=== PATIENT | male | born 1975 | race Caucasian/White ===

== ENCOUNTER 2018-07-02 15:27 | Emergency (ER) | payer OTHER, SELFPAY ==
[2018-07-02 15:27] VITALS: BP 139/101; PULSE 68; RESP 16; TEMP 36.9; O2SAT 97; BMI 25.1
--- NOTE | 2018-07-02 15:39 | CT_ITS ---
STUDY: CT BRAIN WITHOUT CONTRAST REASON FOR EXAM: Male, 43 years old. Dizziness, chronic, hypertension, pressure on the top of the head. RADIATION DOSAGE (If Supplied By Facility): CTDIvol = ( 44.99 ) mGy, DLP = ( 765.18 ) mGycm TECHNIQUE: Transaxial CT imaging of the brain was performed without administration of intravenous contrast material. Individualized dose optimization techniques were used for this CT. COMPARISON: None. FINDINGS: Moderate left, mild right maxillary sinus mucoperiosteal thickening. Near-complete opacification of the ethmoid sinuses. Complete opacification of the right frontal sinus. Mild mucoperiosteal thickening of the left sphenoid sinus. Pansinus disease. Molar roots are protruding into the base of the maxillary sinuses bilaterally and may be a contributing factor in the patient's chronic sinus disease. Mastoid air cells and middle ear cavities clear. Symmetric and grossly normal features of the vestibular and acoustic process of the temporal bones. Craniofacial osseous structures intact. Extra cranial soft tissues including orbital contents appear normal. The brain is normal in attenuation characteristics and morphology. CT/Brain/Head without Contrast IMPRESSION: Pansinus disease. No acute intracranial process. Electronically Signed: Rd Mon MD at 16:46 EST Tel , Service support ,
--- NOTE | 2018-07-02 15:39 | EKG12_ITS ---
Test Reason : HIGH BP, DIZZY Blood Pressure : / mmHG Vent. Rate : 063 BPM Atrial Rate : 063 BPM P-R Int : 148 ms QRS Dur : 086 ms QT Int : 374 ms P-R-T Axes : 035 -14 008 degrees QTc Int : 382 ms Normal sinus rhythm Normal ECG Confirmed by STELLA MALONE, KARTHIK ([id number]), editor producer TANK PICKARD ([id number]) on 07/07/2018 5:06:20 PM Referred By: VAN Confirmed By:KARTHIK DOUGLAS MD
--- NOTE | 2018-07-02 15:47 | ED.VISSUMM ---
- ER Visit Summary Date of Service: 07/02/18 Chief Complaint: [Dizziness and high blood pressure] History of Present Illness: The patient is a 43 M [presents to the emergency department with complaint of feeling dizzy for about a year and a half. Patient states that he moved up to the area from [place] about a year and a half ago and at that time had been on blood pressure medicine for about 2-1/2 years. Patient states that he seen 2 physicians since being here in [facility] and none of them would put him on blood pressure medicine because he was told he did not need. Patient complains of frequent episodes of feeling dizzy and lightheaded when he wakes up in the morning and feeling off balance. Patient complains of pressure in his head frequently. He denies any chest pain or shortness of breath. Patient states that he was not going to come in but since his family member was feeling ill today and came to the ER he thought he had a be seen to make sure he was not having a stroke or heart attack. Patient denies any chest pain or shortness of breath. He denies exertional dyspnea.] Physical Examination: [HEENT-PERRLA, EOMI. Cranial nerves II through XII grossly intact. TMs clear. Mucous membranes moist. No adenopathy. Cardiovascular-regular rate and rhythm without murmur or ectopy Lungs-clear to auscultation, chest wall stable without crepitus or subcu emphysema Abdomen-normoactive bowel sounds, soft, nontender, no rebound or rigidity, no peritoneal signs. Neuro ahik-[id number]-[id number] and heel brenenr testing within normal limits, negative Romberg, negative pronator drift, fundi benign Extremities-intact ?4, normal range of motion, normal pulses, atraumatic] Test Results: [Orthostatic vital signs were negative. EKG obtained on arrival showed a sinus rhythm with a ventricular rate of 63 bpm. CBC with differential shows a white count of 6.0, hemoglobin 14, hematocrit 42, platelets 257. Chemistries were normal. Troponin was less than 0.015. TSH was normal at 3.36. CT scan of the brain showed pansinus disease.] Emergency Department Course and Treatment: [Patient case was discussed with Dr. Iker Ascencio who is on-call for ENT who asked that I start patient on antibiotics and have patient follow-up with his office. At this point his latest blood pressure is 109/78 and I certainly do not feel starting antihypertensives is appropriate. Patient was advised to keep a journal of his blood pressures over the next week.] Treatment Plan: [Patient will be started on amoxicillin and will be referred to primary care physician as well as Dr. Iker Ascencio] Disposition: [Discharged home in stable condition] Impression: [Pansinusitis Dizziness Hypertension-to be established] This note was generated with [employer] dictation software. It may contain incorrect words, spelling, and punctuation that were not noted in review of the chart prior to signing ED Disposition - Plan for ED Patient: Referrals: NOT,DEFINED [NON-STAFF] -
[2018-07-02 16:01] VITALS: BP 123/93; BP 124/82; BP 125/97; BP 132/84; PULSE 62; PULSE 63; PULSE 68; PULSE 69; RESP 22; O2SAT 97
[2018-07-02 16:08] LABS: Absolute Lymphocyte Count 1.87 X10^3/ul (0.83-4.51); Absolute Neutrophil Count 3.1 X10^3/uL (2.0-7.7); Basophil# 0.05 X10^3/uL; Basophil% 0.8 % (0-1); Eosinophil# 0.37 X10^3/uL; Eosinophils% 6.2 % (0-5); Hematocrit 42.4 % (40-54); Hemoglobin 14.3 g/dl (13.0-16.5); Lymphocyte # 1.87 X10^3/ul (4.0); Lymphocyte % 31.4 % (19-41); Mean Corp Hgb Conc 33.7 g/gl (32-36); Mean Corpuscular Hgb 31.2 pg (27.0-32.0); Mean Corpuscular Volume 92.6 fL (80-94); Mean Platelet Vol. 9.6 fl (6.2-12.0); Monocyte# 0.56 X10^3/uL; Monocyte% 9.4 % (0-10); Neutrophil # 3.09 X10^3/uL (2.7-7.7); Platelet Count 257 K/mm3 (150-450); RBC Distribution Width CV 12.4 % (11.6-14.6); RBC Distribution Width SD 41.1 fl (35.1-43.9); Red Blood Count 4.58 M/mm3 (4.6-6.2)
[2018-07-02 16:16] LABS: POSITIVE COUNT NO; POSITIVE DIFFERENTIAL NO; POSITIVE MORPHOLOGY NO
[2018-07-02 16:17] LABS: Anion Gap 6 (5-15); BUN 17 mg/dL (7-18); BUN/Creat Ratio 17.3 RATIO (10-20); Calcium,Total 8.5 mg/dL (8.5-10.1); Chloride 105 mmol/L (98-107); Creatinine, Serum 0.98 mg/dL (0.70-1.30); EST Glomerular Filtration Rate 89 mL/min (>60); Est Glom Filt Rate - Afr Amer 108 mL/min (>60); Estimated Creatinine Clearance 88.61 ml/min; Glucose 82 mg/dL (74-106); Potassium 3.9 mmol/L (3.5-5.1); Sodium Level 137 mmol/L (136-145); Thyroid Stim Hormone (TSH) 3.36 uIU/mL (0.358-3.74)
[2018-07-02 17:26] VITALS: BP 127/93; O2SAT 98
--- NOTE | 2018-07-02 17:28 | ED.DEP ---
ED Disposition - Plan for ED Patient: Instructions: ED Hypertension Poss, ED Sinusitis Abx Tx, ED Dizziness [facility] Prescriptions: Amoxicillin 500 mg PO TID #60 tab Referrals: NOT,DEFINED [NON-STAFF] - Iker Victor MD [STAFF PHYSICIAN] - 5-7 Days Iker Ascencio MD [STAFF PHYSICIAN] - 5-7 Days
== END 2018-07-02 17:35 | disposition home or self-care (01) ==
LOC: ED 16:06
PROVIDERS: Emergency Provider Emergency Medicine
DX: J32.4 Chronic pansinusitis (principal); I10 Essential (primary) hypertension; R42 Dizziness and giddiness; F17.220 Nicotine dependence, chewing tobacco, uncomplicated
CPT/HCPCS: 70450; 80048; 84443; 84484; 85025; 93005; 99284

== ENCOUNTER → 2023-10-31 | Outpatient (CLI) | payer MEDICAID, SELFPAY ==
--- NOTE | 2023-10-31 07:50 | CT_ITS ---
STUDY: CT MAXILLOFACIAL SINUSES REASON FOR EXAM: Male, 48 years old. CHRONIC SINUSITIS RADIATION DOSAGE (If Supplied By Facility): CTDIvol = ( 28.14 ) mGy, DLP = ( 675.84 ) mGycm TECHNIQUE: The patient was scanned in a multi detector CT scanner. High resolution axial imaging was performed without the administration of intravenous contrast material. Sagittal and coronal images were reconstructed. Individualized dose optimization techniques were used for this CT. COMPARISON: None. FINDINGS: FRONTAL SINUSES: Partial opacification of the frontal sinuses. ETHMOIDAL SINUSES: There is opacification of the ethmoid sinuses with thinning and erosive changes of the bony septations. MAXILLARY SINUSES: Partial opacification of the left maxillary sinus with nodular thickening of the right maxillary sinus. There is obliteration of the ostiomeatal cochlea bilaterally due to mucosal hypertrophy. SPHENOIDAL SINUSES: Mucosal thickening of the sphenoid sinus. Normal bilateral middle turbinates. Normal bilateral inferior turbinates. Normal midline nasal septum. There is patency of the bilateral nasal airways. There is evidence of prior right frontal parietal craniotomy. Metallic clips are seen in the region of the right vertebral artery. The visualized bilateral orbital contents are normal. CT/Sinus/Facial Bone IMPRESSION: Pansinusitis. Electronically Signed: Hussein Billings MD at 10:07 EDT ,
== END | disposition home or self-care (01) ==
PROVIDERS: PCP Internal Medicine; Referring Provider Otolaryngology; Visit Provider Otolaryngology
DX: J32.8 Other chronic sinusitis (principal)
CPT/HCPCS: 70486

== ENCOUNTER 2024-11-07 11:11 | Emergency (ER) | payer MEDICARE, MEDICAID, SELFPAY ==
[2024-11-07 11:13] VITALS: BP 118/90; PULSE 73; RESP 16; TEMP 36.5; O2SAT 99; BMI 28.1
[2024-11-07 11:31] VITALS: BP 118/102; O2SAT 99
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
--- NOTE | 2024-11-07 11:34 | EKG12_ITS ---
Test Reason : HTN Blood Pressure : */* mmHG Vent. Rate : 58 BPM Atrial Rate : 58 BPM P-R Int : 150 ms QRS Dur : 90 ms QT Int : 386 ms P-R-T Axes : 24 -3 -7 degrees QTcB Int : 378 ms Sinus bradycardia Inferior infarct , age undetermined Abnormal ECG Confirmed by KARTHIK DOUGLAS MD ([id number]), web content editor KURT ORLANDO ([id number]) on 11/10/2024 6:39:59 AM Referred By: Confirmed By: KARTHIK DOUGLAS MD
[2024-11-07 11:35] VITALS: BP 124/87; PULSE 41; O2SAT 100
[2024-11-07 11:36] VITALS: PULSE 63
--- OUTSIDE RECORDS SUMMARY | 2024-11-07 11:50 | XMS RPT_ITS | CCD ---
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 PT Progress Noteon 3 PT Progress Note No report was sent Normal [facility] Therapy Communicationon - Therapy Communication Message VU OLSON canceled today . Signatures Electronically signed by : Lisa Mott PTA; Dec 18 2022 1:57PM EST (Author) Normal [facility] PT Progress Noteon 3 PT Progress Note Therapy Diagnosis Assessed Hemiplegia and hemiparesis following cerebral infarction affecting left non-dominant side (438.22) (I69.354) Plan Goals: Goals set and discussed today. 1. Survey score improvement from 25% to 10% (QDI) 3-4wks 2. Strength increase to allow for improved ADL stairs (from gr4 to gr4+ L hip IR/ER; from gr4+ to gr5 L DF) 3-4wks 3. Strength increase to allow for improved ADL object handling, carrying (from gr4 to gr5 L shldr abd/ER; from gr4+ to gr5 L elb flex/ext) 3-4wks 4. ROM increase to allow for improved ADL reaching, dressing uppers (from 135 to 150 active shldr elevation) 3-4wks Planned interventions include: aquatic therapy, dry needling, education/instructio n, electrical stimulation, gait training, home program, manual therapy, neuromuscular re-education, self care/home management, therapeutic exercises and IASTM/cupping. Frequency and duration: 2 time(s) a week, for 5 weeks, for 9 visits . aquatics per script; OT has been requested. Potential to achieve rehab goals is fair: chronic syndrome Plan to continue with L UE and L LE strengthening and gait training with emphasis on trunk rotation and reciprocal UE motion to improved gait pattern and safety with community ambulation. JW. Assessment Patient identified by name AND . 133/98 BP at start of session. Patient able to advance reps with good tolerance. Difficulty moving UEs in reciprocal pattern, cues required with several restarts afters UEs sync up. Patient did well with addition of UE paddle push/pull and barball flex/ext. Adult Risk Screening There are no spiritual/cultural practices/values/nee ds that are important to know Initial Fall Risk Screening: VU has not fallen in the last 6 months. VU does not have a fear of falling. He does not need assistance with sitting, standing or walking. Does not need assistance walking in his home. He does not need assistance in an unfamiliar setting. The patient is not using an assistive device. Please identify location of pain: L lateral upper thigh, L bicep. Pain Quality: aching. Living Will. Living Will: No living will on file. Patient Declined. Healthcare POA: No healthcare proxy on file. Patient Declined. Declaration of Mental Health Treatment: No mental health treatment on file. Patient Declined. Insurance Insurance reviewed Visit number: Approved number of visits: 10 Authorization date range: no end date [facility] 10v Evaluating therapist David Doran PT. I69.354 Subjective Patient reports:. Pre-treatment pain: 2/10 Upper L LE/Upper L UE Post-treatment pain: 1/10 Upper L LE/Upper L UE Patient states that his blood pressure has been running high and is being monitoring for the Dr. Home program performing as directed: No. Precautions: Fall Risk: none Pertinent medical HX includes: last seizure last (not on seizure medication). Treatment Time in clinic started at 3:15 pm Time in clinic ended at 4:00 pm Total time in clinic is 45 minutes. Total timed code time is 43 minutes. Aquatic Therapy (51632): timed minutes 43, units 3 . FWD gait in 3 ft x 6 laps with BUS VAN DRIVER, working on heel off and increased knee flexion on L LE. FWD ambulation with UE swings in 3 ft x 3 laps, cues for sequence Side stepping x laps TrA isometric in 3ft. 5 x10 Alt Marches x15 w/UE swings hip flexion x15 ea LE hip abd x15 ea LE hip extension x15 ea LE B heel raises x15 L heel raises x15 Step Tap x15 P Step UPs x15 P L shoulder abduction with elbow bent at 45* x15 P L shoulder abduction with elbow extended x15 P L tricep extension x15 P L shoudler flexion x15 P UE Paddle -push pull x10 N Barbell UE flex/ext x10 N . Provided today:. 11/23/22 Patient instructed to lay flat and stretch L bicep, keep TrA engaged with gait and standing activities and ambulate with increased hip and knee flexion on L. 'Scores and Scales' Signatures Electronically signed by : Lisa Mott PTA; Dec 13 2022 4:47PM EST (Author) Electronically signed by : Eric Doran PT; Dec 14 2022 7:00AM EST Normal [facility] Therapy Communicationon 11-11 Therapy Communication Message VU OLSON rescheduled today . Appt cancelled secondary to thunderstorms. Signatures Electronically signed by : Ale Irving PTA; Dec 07 2022 2:07PM EST (Author) Normal [facility] Therapy Communicationon 11-11 Therapy Communication Message VU OLSON canceled today . Patient cancelled secondary to illness. Jw. Signatures Electronically signed by : Lisa Mott PTA; Dec 04 2022 2:33PM EST (Author) Normal [facility] PT Progress Noteon 3 PT Progress Note No report was sent [facility] Therapy Communicationon 11-11 Therapy Communication Message VU OLSON canceled today . Patient arrived for his appointment. He was observed pacing in the hallway in his bathing suit. Then went to the supervisor front and asked them to call his . I brought him back to the pool area and he asked if I could call his . He did state that he felt a little dizzy. The PSR let patient know that she did reach his via phone call and his was on her way. After taking his BP (157/105) I then took him out to a amaya and had him lay down. Took his BP again after 5-10 min and it was 156/101, then again 10 min later and it was 156/102. arrived and after another 10-15' his BP decreased to 141/99. She then assisted patient to locker room and from there, was going to take him home. Signatures Electronically signed by : Brenda Dunne PTA; Nov 30 2022 2:57PM EST (Author) Normal [facility] PT Progress Noteon 3 PT Progress Note Therapy Diagnosis Assessed Hemiplegia and hemiparesis following cerebral infarction affecting left non-dominant side (438.22) (I69.354) Plan Goals: Goals set and discussed today. 1. Survey score improvement from 25% to 10% (QDI) 3-4wks 2. Strength increase to allow for improved ADL stairs (from gr4 to gr4+ L hip IR/ER; from gr4+ to gr5 L DF) 3-4wks 3. Strength increase to allow for improved ADL object handling, carrying (from gr4 to gr5 L shldr abd/ER; from gr4+ to gr5 L elb flex/ext) 3-4wks 4. ROM increase to allow for improved ADL reaching, dressing uppers (from 135 to 150 active shldr elevation) 3-4wks Planned interventions include: aquatic therapy, dry needling, education/instructio n, electrical stimulation, gait training, home program, manual therapy, neuromuscular re-education, self care/home management, therapeutic exercises and IASTM/cupping. Frequency and duration: 2 time(s) a week, for 5 weeks, for 9 visits . aquatics per script; OT has been requested. Potential to achieve rehab goals is fair: chronic syndrome Plan to continue with L UE and L LE strengthening and gait training with emphasis on trunk rotation and reciprocal UE motion to normalize gait. JW. Assessment Patient identified by name AND . Patient was able to enter and exit pool without CGA. Worked on UE swing with fwd ambulation, patient required tactile cues to keep sequence. Patient also required tactile cues for alt marching with UE swings, patient tends to lose reciprocal motion and is able to regain sequence after re-setting. Adult Risk Screening There are no spiritual/cultural practices/values/nee ds that are important to know Initial Fall Risk Screening: VU has not fallen in the last 6 months. VU does not have a fear of falling. He does not need assistance with sitting, standing or walking. Does not need assistance walking in his home. He does not need assistance in an unfamiliar setting. The patient is not using an assistive device. Please identify location of pain: L lateral upper thigh, L bicep. Pain Quality: aching. Living Will. Living Will: No living will on file. Patient Declined. Healthcare POA: No healthcare proxy on file. Patient Declined. Declaration of Mental Health Treatment: No mental health treatment on file. Patient Declined. Insurance Insurance reviewed Visit number: Approved number of visits: 10 Authorization date range: no end date [facility] 10 Evaluating therapist David Doran PT. I69.354 Subjective Patient reports:. Patient states he was able to get out and run yesterday, reports only SOB and no falls. Reports that he has a difficult time controlling L UE. Pre-treatment pain: 2/10 Upper L LE/Upper L UE Post-treatment pain: 1/10 Upper L LE/Upper L UE . Home program performing as directed: No. Precautions: Fall Risk: none Pertinent medical HX includes: last seizure last (not on seizure medication). Treatment Time in clinic started at 3:15 pm Time in clinic ended at 4:00 pm Total time in clinic is 45 minutes. Total timed code time is 43 minutes. Aquatic Therapy (47551): timed minutes 47, units 3 . FWD gait in 3 ft x 6 laps with BUS VAN DRIVER, working on heel off and increased knee flexion on L LE. Side stepping x 2 laps TrA isometric in 3ft. 5 x10 Alt Marches x15 w/UE swings N hip flexion x15 ea LE P hip abd x15 ea LE P hip extension x15 ea LE P B heel raises x15 P L heel raises x15 P Step Tap x10 N Step UPs x10 N L shoulder abduction with elbow bent at 45* x10 L shoulder abduction with elbow extended x10 L tricep extension x10 L shoudler flexion x10 . Provided today:. 11/23/22 Patient instructed to lay flat and stretch L bicep, keep TrA engaged with gait and standing activities and ambulate with increased hip and knee flexion on L. 'Scores and Scales' Signatures Electronically signed by : Lisa Mott LIBRARY MONITOR; Nov 27 2022 4:11PM EST (Author) Electronically signed by : Eric Doran PT; Nov 28 2022 9:43AM EST Normal [facility] PT Progress Noteon 3 PT Progress Note Therapy Diagnosis Assessed Hemiplegia and hemiparesis following cerebral infarction affecting left non-dominant side (438.22) (I69.354) Plan Goals: Goals set and discussed today. 1. Survey score improvement from 25% to 10% (QDI) 3-4wks 2. Strength increase to allow for improved ADL stairs (from gr4 to gr4+ L hip IR/ER; from gr4+ to gr5 L DF) 3-4wks 3. Strength increase to allow for improved ADL object handling, carrying (from gr4 to gr5 L shldr abd/ER; from gr4+ to gr5 L elb flex/ext) 3-4wks 4. ROM increase to allow for improved ADL reaching, dressing uppers (from 135 to 150 active shldr elevation) 3-4wks Planned interventions include: aquatic therapy, dry needling, education/instructio n, electrical stimulation, gait training, home program, manual therapy, neuromuscular re-education, self care/home management, therapeutic exercises and IASTM/cupping. Frequency and duration: 2 time(s) a week, for 5 weeks, for 9 visits . aquatics per script; OT has been requested. Potential to achieve rehab goals is fair: chronic syndrome Plan to continue with L shoulder ROM AND L LE ROM and strengthening for improved gait pattern and ease of ambulation and functional ADL's. - MA. Assessment Patient identified by name AND . Patient oriented to use of emergency walkie talkie. Treatment consisted of aquatic ex's for core strengthening, L LE ROM AND strengthening, L UE strength AND ROM and gait. Patient has slight L sided neglect. Decreased L hip and knee flexion with gait which was improved at the end of treatment. Patient has week L tricep and tight R bicep. Patient instructed to lay flat and stretch L bicep, keep TrA engaged with gait and standing activities and ambulate with increased hip and knee flexion on L. Pain decreased post treatment. * Required CGA with ex's today and enters and exits pool via stairs. Adult Risk Screening There are no spiritual/cultural practices/values/nee ds that are important to know Initial Fall Risk Screening: VU has not fallen in the last 6 months. VU does not have a fear of falling. He does not need assistance with sitting, standing or walking. Does not need assistance walking in his home. He does not need assistance in an unfamiliar setting. The patient is not using an assistive device. Pain Scale: On a scale of 0 to 10, the patient rates the pain at 2. Please identify location of pain: L lateral upper thigh, L bicep. Pain Quality: aching. Living Will. Living Will: No living will on file. Patient Declined. Healthcare POA: No healthcare proxy on file. Patient Declined. Declaration of Mental Health Treatment: No mental health treatment on file. Patient Declined. Insurance Insurance reviewed Visit number: 2 Approved number of visits: 10 Authorization date range: no end date [facility] 10v Evaluating therapist David Doran PT. I69.354 Subjective Patient reports:. Pretreatment pain: 2/10 in upper part of lateral side of L leg, 2/10 in bicep of L arm Post treatment pain: 1/10 L lateral upper leg and 1/10 L bicep Patient states that he walks going to his R and that he does a step-to pattern with stairs. States that he has not done his HEP ex's that he was given at his eval. Home program performing as directed: No. Precautions: Fall Risk: none Pertinent medical HX includes: last seizure last (not on seizure medication). Treatment Time in clinic started at 2:00 pm Time in clinic ended at 2:50 pm Total time in clinic is 50 minutes. Total timed code time is 47 minutes. Aquatic Therapy (28511): timed minutes 47, units 3 . FWD gait in 3 ft x 6 laps with BUS VAN DRIVER, working on heel off and increased knee flexion on L LE. Side stepping x 2 laps TrA isometric in 3ft. 5 x10 hip flexion x10 ea LE hip abd x10 ea LE hip extension x10 ea LE B heel raises x10 L heel raises x10 L shoulder abduction with elbow bent at 45* x10 L shoulder abduction with elbow extended x10 L tricep extension x10 L shoudler flexion x10 . Provided today:. 11/23/22 Patient instructed to lay flat and stretch L bicep, keep TrA engaged with gait and standing activities and ambulate with increased hip and knee flexion on L. 'Scores and Scales' Signatures Electronically signed by : Brenda Dunne LIBRARY MONITOR; Nov 23 2022 3:42PM EST (Author) Electronically signed by : Eric Doran PT; Nov 23 2022 5:34PM EST Normal [facility] PT Initial Evaluationon 07-0 PT Initial Evaluation Therapy Diagnosis Assessed Hemiplegia and hemiparesis following cerebral infarction affecting left non-dominant side (438.22) (I69.354) Plan of Care Goals: Goals set and discussed today. 1. Survey score improvement from 25% to 10% (QDI) 3-4wks 2. Strength increase to allow for improved ADL stairs (from gr4 to gr4+ L hip IR/ER; from gr4+ to gr5 L DF) 3-4wks 3. Strength increase to allow for improved ADL object handling, carrying (from gr4 to gr5 L shldr abd/ER; from gr4+ to gr5 L elb flex/ext) 3-4wks 4. ROM increase to allow for improved ADL reaching, dressing uppers (from 135 to 150 active shldr elevation) 3-4wks Planned interventions include: aquatic therapy, dry needling, education/instructio n, electrical stimulation, gait training, home program, manual therapy, neuromuscular re-education, self care/home management, therapeutic exercises and IASTM/cupping. Frequency and duration: 2 time(s) a week, for 5 weeks, for 9 visits . aquatics per script; OT has been requested. Potential to achieve rehab goals is fair: chronic syndrome Plan of care was developed with input and agreement by the patient. Assessment The patient has had multiple series of rehab previous to this order. He requested pool therapy as he had it here before and he felt it would help his balance and spasticity-the Dr agreed with this. The original stroke was in Dec. The patient states that the neurologist chose not to prescribe seizure med due to the absence of brain activity consistent with seizures. THE PATIENT'S MAIN COMPLAINT IS LIMITED USE OF HIS ARM/HAND SO OCCUPATIONAL THERAPY WOULD ALSO BE APPROPRIATE. FURTHER DETAILED HAND WORK-UP WILL BE DEFERRED TO OCCUPATIONAL THERAPY WHEN OT ORDERS ARE RECEIVED. The patient scored 0 on the PHQ-9 instrument today. Findings additional to L hand spasticity include L hip and arm weakness and limited L shldr AROM. PT will continue with balance/gait activities, hip PRE and LUE ROM/PRE in the pool. STATED ABOVE DETAILED HAND WORK-UP AND TREATMENT OF SPATIC TENDENCIES WILL COMMENCE WITH AN OT ORDER. Clinical Presentation: Stable and/or uncomplicated characteristics. Level of Complexity: low Problem List: activity limitations, ADLs/IADLs/self care skills, decreased functional level, decreased knowledge of HEP, decreased knowledge of precautions, gait/locomotion, range of motion/joint mobility and strength. Reason For Visit Initial Evaluation . CVA. Referred by: [facility] Adult Risk Screening There are no spiritual/cultural practices/values/nee ds that are important to know Initial Fall Risk Screening: VU has not fallen in the last 6 months. VU does not have a fear of falling. He does not need assistance with sitting, standing or walking. Does not need assistance walking in his home. He does not need assistance in an unfamiliar setting. The patient is not using an assistive device. Living Will. Living Will: No living will on file. Patient Declined. Healthcare POA: No healthcare proxy on file. Patient Declined. Declaration of Mental Health Treatment: No mental health treatment on file. Patient Declined. Insurance Insurance reviewed Visit number: 1 Approved number of visits: 10 Authorization date range: no end date [facility] 10v Evaluating therapist David Doran PT. I69.354 Subjective Current Episode of Functional Impairment and/or Pain Date of onset: 12/22/2020 Mechanism of Injury:. 2nd stroke . Medical Screening: Reviewed medical history form with patient and medical screening assessed. Current Medical Management:. multiple sreies of PT since original incident (x2 series here). Precautions: Fall Risk: none Pertinent medical HX includes: last seizure last (not on seizure medication). Functional Assessment Prior level of function: PAINFUL, DIFFICULT, OR ALTERED ADL (marked with an xx) sleep-- sitting-- sit to standing transfers-- car transfers-- standing-- walking-- carrying--XX stairs--XX dressing lowers--XX driving-- dressing uppers--XX reaching----XX handling objects--XX other-- . Objective Ortho ROM / Joint Mobility (Range of Motion in degrees) Shoulder: (Elise: P! Denotes Pain with Movement, * Indicates [place] Resistant Otherwise Measurements are in Supine) Flexion: R Active 150, L Active 135. Elbow: (Elise = P! Denotes Pain with Movement) B elbow active flex/ext WFL. Gait / Mobility Gait: normal gait at normal speeds; tends to walk with LUE in dependent position. Strength Shoulders: (Elise: P! Denotes Pain with Movement) Shoulder abduction 5/5 on right, 4/5 on left. External rotation at side 5/5 on right, 4/5 on left. External rotation at 5/5 on right, in 30 deg. Abduction, 4/5 on left, in 30 deg. Abduction. Internal rotation at 5/5 on right, in 30 deg. Abduction, 4+/5 on left, in 30 deg. Abduction. Elbows: (Elise: P! Denotes Pain with Movement) Extension: 5/5 on right and 4+/5 on left. Fle (more content not included)... Normal [facility] CBC AND DIFFERENTIALon 11-02 % AUTOMATED IMMATURE GRAN 0.2 % Normal 0.0 - 0.9 [facility] Comment on above: Result Comment: Jesusita ture Granulocyte Count (IG) includes promyelocytes, myelocytes and metamyelocytes but does not include bands. Percent differential counts (%) should be interpreted in the context of the absolute cell counts (cells/L). Performed By: #### C BCDF #### [address] [address] Basophils (Bld) [#/Vol] 0.04 10*3/uL Normal 0.00 - 0.1 0 [facility] Comment on above: Performed By: #### C BCDF #### [address] [address] Basophils/100 WBC (Bld) 0.8 % Normal 0.0 - 2.0 [facility] Comment on above: Performed By: #### C BCDF #### [address] [address] Eosinophils (Bld) [#/Vol] 0.21 10*3/uL Normal 0.00 - 0.70 [facility] Comment on above: Performed By: #### C BCDF #### [address] [address] Eosinophils/100 WBC (Bld) 4.2 % Normal 0.0 - 6.0 [facility] Comment on above: Performed By: #### C BCDF #### [address] [address] Erythrocyte distribution width (RBC) [Ratio] 12.3 % Normal 11.5 - 14.5 [facility] Comment on above: Performed By: #### C BCDF #### [address] [address] Hematocrit (Bld) [Volume fraction] 45.6 % Normal 41.0 - 52.0 [facility] [facility] Comment on above: Performed By: #### C BCDF #### [address] [address] Hemoglobin (Bld) [Mass/Vol] 15.5 g/dL Normal 13.5 - 17.5 [facility] Comment on above: Performed By: #### C BCDF #### [address] [address] Lymphocytes (Bld) [#/Vol] 1.33 10*3/uL Normal 1.20 - 4.80 [facility] Comment on above: Performed By: #### C BCDF #### [address] [address] Lymphocytes/100 WBC (Bld) 26.4 % Normal 13.0 - 44.0 [facility] Comment on above: Performed By: #### C BCDF #### [address] [address] MCHC (RBC) [Mass/Vol] 34.0 g/dL Normal 32.0 - 36.0 [facility] Comment on above: Performed By: #### C BCDF #### [address] [address] MCV (RBC) [Entitic vol] 94 fL Normal 80 - [address] [facility] Comment on above: Performed By: #### C BCDF #### [address] [address] Monocytes (Bld) [#/Vol] 0.37 10*3/uL Normal 0.10 - 1.0 0 [facility] Comment on above: Performed By: #### C BCDF #### [address] [address] Monocytes/100 WBC (Bld) 7.4 % Normal 2.0 - 10.[address] [facility] Comment on above: Performed By: #### C BCDF #### [address] [address] Neutrophils (Bld) [#/Vol] 3.07 10*3/uL Normal 1.20 - 7.70 [facility] Comment on above: Result Comment: Perc ent differential counts (%) should be interpreted in the context of the absolute cell counts (cells/L). Performed By: #### C BCDF #### [address] [address] Neutrophils/100 WBC (Bld) 61.0 % Normal 40.0 - 80.0 [facility] Comment on above: Performed By: #### C BCDF #### [address] [address] Platelets (Bld) [#/Vol] 252 10*3/uL Normal 150 - 450 [facility] Comment on above: Performed By: #### C BCDF #### [address] [address] RBC 4.85 x10E12/L Normal 4.50 - 5.90 [facility] Comment on above: Performed By: #### C BCDF #### [address] [address] WBC (Bld) [#/Vol] 5.0 10*3/uL Normal 4.4 - 11.3 [facility] Comment on above: Performed By: #### C BCDF #### [place] [address] COMPREHENSIVE PANELon 2022 Albumin [Mass/Vol] 4.3 g/dL Normal 3.4 - 5.0 [facility] Comment on above: Performed By: #### C MP #### [address] [address] ALP [Catalytic activity/Vol] 69 U/L Normal 33 - 120 [facility] Comment on above: Performed By: #### C MP #### [address] [address] ALT [Catalytic activity/Vol] 24 U/L Normal 10 - 52 [facility] Comment on above: Result Comment: Nita ents treated with Sulfasalazine may generate falsely decreased results for ALT. Performed By: #### C MP #### [address] [address] Anion gap [Moles/Vol] 10 mmol/L Normal 10 - 20 [facility] Comment on above: Performed By: #### C MP #### [address] [address] AST [Catalytic activity/Vol] 17 U/L Normal 9 - 39 [facility] Comment on above: Performed By: #### C MP #### [address] [address] Bilirubin [Mass/Vol] 0.6 mg/dL Normal 0.0 - 1.2 [facility] Comment on above: Performed By: #### C MP #### [address] [address] Calcium [Mass/Vol] 9.4 mg/dL Normal 8.6 - 10.3 [facility] Comment on above: Performed By: #### C MP #### [address] [address] Chloride [Moles/Vol] 108 mmol/L High 98 - 107 [facility] Comment on above: Performed By: #### C MP #### [address] [address] Creatinine [Mass/Vol] 1.01 mg/dL Normal 0.50 - 1.30 [facility] Comment on above: Performed By: #### C MP #### [address] [address] eGFR MALE >90 Normal >90 [facility] Comment on above: Result Comment: CALC ULATIONS OF ESTIMATED GFR ARE PERFORMED USING THE 2020 CKD-EPI STUDY REFIT EQUATION WITHOUT THE RACE VARIABLE FOR THE IDMS-TRACEABLE CREATININE METHODS. https://jasn.asnjournals.org/content/early/ASN.2020 375474 Performed By: #### C MP #### [address] [address] Glucose [Mass/Vol] 95 mg/dL Normal 74 - 99 [facility] Comment on above: Performed By: #### C MP #### [address] [address] HCO3 (Bld) [Moles/Vol] 29 mmol/L Normal 21 - 32 [facility] Comment on above: Performed By: #### C MP #### [address] [address] Potassium [Moles/Vol] 4.3 mmol/L Normal 3.5 - 5.3 [facility] Comment on above: Performed By: #### C MP #### [address] [address] Protein [Mass/Vol] 6.9 g/dL Normal 6.4 - 8.2 [facility] Comment on above: Performed By: #### C MP #### [address] [address] Sodium [Moles/Vol] 143 mmol/L Normal 136 - 145 [facility] Comment on above: Performed By: #### C MP #### [address] [address] Urea nitrogen [Mass/Vol] 12 mg/dL Normal 6 - 23 [facility] Comment on above: Performed By: #### C MP #### [address] [address] Complete Blood Count + Diffe rentialon 11-02-2022 Basophils/100 WBC (Bld) 0.8 % 0.0 - 2.0 [facility] [place] Work Phone: Erythrocyte distribution width (RBC) [Ratio] 12.3 % See Below [facility] Work Phone: Comment on above: Reference Range: 11. 5 - 14.5 Hematocrit (Bld) [Volume fraction] 45.6 % See Below [facility] Work Phone: Comment on above: Reference Range: 41. 0 - 52.0 Hemoglobin (Bld) [Mass/Vol] 15.5 g/dL See Below [facility] Work Phone: Comment on above: Reference Range: 13. 5 - 17.5 Lymphocytes/100 WBC (Bld) 26.4 % See Below [facility] Work Phone: Comment on above: Reference Range: 13. 0 - 44.0 MCHC (RBC) [Mass/Vol] 34.0 g/dL See Below [facility] Work Phone: Comment on above: Reference Range: 32. 0 - 36.0 MCV (RBC) [Entitic vol] 94 fL 80 - 100 [facility] Work Phone: Monocytes/100 WBC (Bld) 7.4 % 2.0 - 10.0 [facility] Work Phone: Neutrophils/100 WBC (Bld) 61.0 % See Below [facility] Work Phone: Comment on above: Reference Range: 40. 0 - 80.0 Platelets (Bld) [#/Vol] 252 10*3/uL 150 - 450 [facility] Work Phone: RBC (Bld) [#/Vol] 4.85 {x10E12/L} See Below [facility] Work Phone: Comment on above: Reference Range: 4.5 0 - 5.90 WBC (Bld) [#/Vol] 5.0 10*3/uL 4.4 - 11.3 [facility] Work Phone: Comment on above: SOURCE: Complete Blood Count + Differential 0.04 {x10E9/L} See Below [facility] Work Phone: Comment on above: Reference Range: 0.0 0 - 0.10 Complete Blood Count + Differential 0.21 {x10E9/L} See Below [facility] Work Phone: Comment on above: Reference Range: 0.0 0 - 0.70 Complete Blood Count + Differential 0.37 {x10E9/L} See Below [facility] Work Phone: Comment on above: Reference Range: 0.1 0 - 1.00 Complete Blood Count + Differential 1.33 {x10E9/L} See Below [facility] Work Phone: Comment on above: Reference Range: 1.2 0 - 4.80 Complete Blood Count + Differential 3.07 {x10E9/L} See Below [facility] Work Phone: Comment on above: Reference Range: 1.2 0 - 7.70 Percent differential counts (%) should be interpreted in the context of the absolute cell counts (cells/L). Complete Blood Count + Differential 4.2 % 0.0 - 6.[address] Work Phone: Complete Blood Count + Differential 0.2 % 0.0 - 0.9 [facility] Work Phone: Comment on above: Immature Granulocyte Count (IG) includes promyelocytes, myelocytes and metamyelocytes but does not include bands. Percent differential counts (%) should be interpreted in the context of the absolute cell counts (cells/L). LIPID PANEL (CORONARY RISK 2 )on 11-02-2022 Cholesterol [Mass/Vol] 148 mg/dL Normal 0 - 199 [facility] Comment on above: Result Comment: . AGE DESIRABLE BORDERLINE HIGH HIGH 0-19 Y 0 - 169 170 - 199 >/= 200 20-24 Y 0 - 189 190 - 224 >/= 225 >24 Y 0 - 199 200 - 239 >/= 240 All ranges are based on fasting samples. Specific therapeutic targets will vary based on patient-specific cardiac risk. . Pediatric guidelines reference:Pediatrics 2011, 128(S5). Adult guidelines reference: NCEP ATPIII Guidelines, ZECHARIAH 2001, 258:2486-97 . Venipuncture immediately after or during the administration of Metamizole may lead to falsely low results. Testing should be performed immediately prior to Metamizole dosing. Performed By: #### L IPID #### [address] [address] Cholesterol in HDL [Mass/Vol] 40.0 mg/dL Normal [facility] Comment on above: Result Comment: . AGE VERY LOW LOW NORMAL HIGH 0-19 Y < 35 < 40 40-45 ---- 20-24 Y ---- < 40 >45 ---- >24 Y ---- < 40 40-60 >60 . Performed By: #### L IPID #### [address] [address] Cholesterol in LDL [Mass/Vol] 87 mg/dL Normal 0 - 99 [facility] Comment on above: Result Comment: . NEAR BORD AGE DESIRABLE OPTIMAL HIGH HIGH VERY HIGH 0-19 Y 0 - 109 --- 110-129 >/= 130 ---- 20-24 Y 0 - 119 --- 120-159 >/= 160 ---- >24 Y 0 - 99 100-129 130-159 160-189 >/=190 . Performed By: #### L IPID #### [address] [address] Cholesterol in VLDL [Mass/Vol] 21 mg/dL Normal 0 - 40 [facility] Comment on above: Performed By: #### L IPID #### [address] [address] Cholesterol.total/Lise sterol in HDL [Mass ratio] 3.7 {ratio} Normal [facility] Comment on above: Result Comment: REF VALUES DESIRABLE < 3.4 HIGH RISK > 5.0 Performed By: #### L IPID #### [address] [address] Triglyceride [Mass/Vol] 105 mg/dL Normal 0 - [address] [facility] Comment on above: Result Comment: . AGE DESIRABLE BORDERLINE HIGH HIGH VERY HIGH 0 D-90 D 19 - 174 ---- ---- ---- 91 D- 9 Y 0 - 74 75 - 99 >/= 100 ---- 10-19 Y 0 - 89 90 - 129 >/= 130 ---- 20-24 Y 0 - 114 115 - 149 >/= 150 ---- >24 Y 0 - 149 150 - 199 200- 499 >/= 500 . Venipuncture immediately after or during the administration of Metamizole may lead to falsely low results. Testing should be performed immediately prior to Metamizole dosing. Performed By: #### L IPID #### [address] [address] Lab Specimen Source Normal [facility] Comment on above: Performed By: #### L IPID #### [address] [address] Performed By: #### C BCDF #### [id number] [place] [address] Performed By: #### C MP #### [address] [address] Laboratory - Chemistry and C hemistry - challengeon 11-02-2022 Albumin BCP dye [Mass/Vol] 4.3 g/dL 3.4 - 5.0 [facility] Work Phone: ALP [Catalytic activity/Vol] 69 U/L 33 - 120 [facility] Work Phone: ALT With P-5'-P [Catalytic activity/Vol] 24 U/L 10 - 52 [facility] Work Phone: Comment on above: Patients treated wit h Sulfasalazine may generate falsely decreased results for ALT. Anion gap [Moles/Vol] 10 mmol/L 10 - 20 [facility] [employer] [facility] [place] Work Phone: AST With P-5'-P [Catalytic activity/Vol] 17 U/L 9 - 39 [facility] [employer] [facility] [place] Work Phone: Bilirubin [Mass/Vol] 0.6 mg/dL 0.0 - 1.2 [facility] [employer] [facility] [place] Work Phone: Calcium [Mass/Vol] 9.4 mg/dL 8.6 - 10.3 [facility] [employer] [place] Work Phone: Chloride [Moles/Vol] 108 mmol/L above high threshold 98 - 107 [facility] [employer] [place] Work Phone: CO2 [Moles/Vol] 29 mmol/L 21 - 32 [facility] [employer] [facility] [place] Work Phone: Creatinine [Mass/Vol] 1.01 mg/dL See Below [facility] [place] Work Phone: Comment on above: Reference Range: 0.5 0 - 1.30 Glucose [Mass/Vol] 95 mg/dL 74 - 99 [facility] [place] Work Phone: Comment on above: SOURCE: Potassium [Moles/Vol] 4.3 mmol/L 3.5 - 5.3 [facility] [place] Work Phone: Protein [Mass/Vol] 6.9 g/dL 6.4 - 8.2 [facility] [place] Work Phone: Sodium [Moles/Vol] 143 mmol/L 136 - 145 [facility] [place] Work Phone: Urea nitrogen [Mass/Vol] 12 mg/dL 6 - 23 [facility] [place] Work Phone: Lipid Panelon 11-02-2022 Cholesterol [Mass/Vol] 148 mg/dL 0 - 199 [facility] [place] Work Phone: Comment on above: SOURCE: . AGE DESIRA BLE BORDERLINE HIGH HIGH 0-19 Y 0 - 169 170 - 199 >/= 200 20-24 Y 0 - 189 190 - 224 >/= 225 >24 Y 0 - 199 200 - 239 >/= 240 All ranges are based on fasting samples. Specific therapeutic targets will vary based on patient-specific cardiac risk.. Pediatric guidelines reference:Pediatrics 2011, 128(S5). Adult guidelines reference: NCEP ATPIII Guidelines, ZECHARIAH 2001, 258:2486-97. Venipuncture immediately after or during the administration of Metamizole may lead to falsely low results. Testing should be performed immediately prior to Metamizole dosing. Cholesterol in HDL [Mass/Vol] 40.0 mg/dL [facility] [place] Work Phone: Comment on above: . AGE VERY LOW LOW N ORMAL HIGH 0-19 Y < 35 < 40 40-45 ---- 20-24 Y ---- < 40 >45 ---- >24 Y ---- < 40 40-60 >60. Cholesterol in LDL [Mass/Vol] 87 mg/dL 0 - 99 [facility] [place] Work Phone: Comment on above: . NEAR BORD AGE YESSI RABLE OPTIMAL HIGH HIGH VERY HIGH 0-19 Y 0 - 109 --- 110-129 >/= 130 ---- 20-24 Y 0 - 119 --- 120-159 >/= 160 ---- >24 Y 0 - 99 100-129 130-159 160-189 >/=190. Cholesterol.total/Lise sterol in HDL [Mass ratio] 3.7 {ratio} [facility] [employer] Work Phone: Comment on above: REF VALUESDESIRABLE < 3.4HIGH RISK > 5.0 Triglyceride [Mass/Vol] 105 mg/dL 0 - 149 [facility] [employer] Work Phone: Comment on above: . AGE DESIRABLE BORD SYBIL HIGH HIGH VERY HIGH 0 D-90 D 19 - 174 ---- ---- ----91 D- 9 Y 0 - 74 75 - 99 >/= 100 ---- 10-19 Y 0 - 89 90 - 129 >/= 130 ---- 20-24 Y 0 - 114 115 - 149 >/= 150 ---- >24 Y 0 - 149 150 - 199 200- 499 >/= 500. Venipuncture immediately after or during the administration of Metamizole may lead to falsely low results. Testing should be performed immediately prior to Metamizole dosing. Lipid Panel 21 mg/dL 0 - 40 [facility] [employer] Work Phone: No Panel Informationon 11-02 >90 >90 [facility] [place] Work Phone: Comment on above: CALCULATIONS OF MARIELLE MATED GFR ARE PERFORMED USING THE 2020 CKD-EPI STUDY REFIT EQUATION WITHOUT THE RACE VARIABLE FOR THE IDMS-TRACEABLE CREATININE METHODS.https://jasn.asnjournals.org/content/early/ ASN.4242695537 PT Progress Noteon 3 PT Progress Note No report was sent Normal [facility] Therapy Communicationon Therapy Communication Message Pt had no showed original appointment time and when PT called patient he verbalized they were pulling in the parking lot as they had the appointment down for 45' later than it was scheduled. Discussed this with pt and significant other once they were inside the clinic. Had pt fill out outcome surveys and will wait on additional orders before rescheduling, as pt verbalized he had been seen by physician and they were putting in more orders to continue therapy. Spoke with VU OLSON . Signatures Electronically signed by : Shira Ledezma, PT; Jul 11 2022 5:19PM EST (Author) Normal [facility] PT Progress Noteon 3 PT Progress Note No report was sent Normal [facility] Therapy Communicationon 06-14 Therapy Communication Message VU OLSON no showed today . Patient did not show up for scheduled appointment. Called, but no answer. JW. 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 By discharge VU OLSON will achieve the following goals: Pt will demo and report compliance with new HEP in order to augment POC goals and progression toward independence with symptom management for better outcomes once D/C from POC. , by week 2 Activity Limitation: Pt will be able to don/doff all clothes with , by week 6 Balance: Pt will demo improved functional balance with all transfers with Sit<>stand test improved by >/= 2 seconds., by week 6 Gait/Locomotion: Pt will demo improved gait mechanics with least restrictive device, even step length, stance time, proper heel strike and push off, and min-no evidence of instability or antalgic gait for return to PLOF. , by week 6 Range Of Motion/Joint Mobility: Pt will demo improved *AROM/PROM* in L Shoulder to >/= 170 flexion for improved ease with functional activities with reaching, lifting, carrying for progression toward independence with ADL?s AND IADL?s. , by week 6 Strength: Pt will demo improved MMT by >/= 1 point on 0-5 point scale in BUE's for improved strength and stability, and improved ease with lifting, carrying, and proper mechanics with ADL?s AND IADL?s. , by week 6 Transfers: Pt will demo improved ease with ascending/descending stairs with reciprocal pattern and improved eccentric control to decrease fall risk. , by week 6 QuickDASH, Pt will report subjective improvement with score on QuickDASH improved by >/= 5 points for return to PLOF, improved QOL, and improved ease with ADL?s AND IADL?s. , by week 6 Planned interventions include: aquatic therapy, cryotherapy, education/instructio n, gait training, home program, hot pack, kinesiotaping, manual therapy, neuromuscular re-education, self care/home management, therapeutic activities, therapeutic exercises and IASTM/CUPPING. Frequency and duration: 2 time(s) a week, for 6 weeks, for 12 visits . per C9. Potential to achieve rehab goals is good Continue with aquatic exercises and reciprocal motions to allow for improved reciprocal motions with ADLs. JW. Assessment Patient confirmed name and date of . Patient showed improved sequence with alternating UE hits to ball, continued to use dissociated stance. Advanced stretching to side to side, trialed using dumbbell but patient could not hold dumbbell down. Patient does best with tactile cues with reciprocal UE motions with ambulation. Adult Risk Screening There are no spiritual/cultural practices/values/nee ds that are important to know Initial Fall Risk Screening: VU has not fallen in the last 6 months. VU does not have a fear of falling. He does not need assistance with sitting, standing or walking. Does not need assistance walking in his home. He does not need assistance in an unfamiliar setting. The patient is not using an assistive device. Please identify location of pain: Left Upper arm AND L upper leg on lateral aspect by hip. Pain Quality: spasm. Living Will. Living Will: No living will on file. Healthcare POA: No healthcare proxy on file. Declaration of Mental Health Treatment: No mental health treatment on file. Domestic Violence Screen: Does not feel threatened or abused physically, emotionally or sexually. Do you feel UNSAFE? The patient feels safe in the home. Depression/Suicide Screening: During the past 2 weeks, the patient has not felt down, depressed or hopeless. During the past 2 weeks, the patient has not felt little interest or pleasure in doing things. Insurance Insurance reviewed Visit number: 02/21 [facility] Supervising PT: Shira Ledezma PT, DPT, Kamran DN PT Dx: I69.354; S06.2X9D Onset Date: 2020 Subjective Patient reports:. Date of onset: . Patient states that there are no changes in pain or tightness. Reports pain levels of 2/10 in L UE/LE in the upper portion. No changes in tightness since starting Baclophen. Home program performing as directed: Yes. Precautions: Fall Risk: low Treatment Time in clinic started at 12:15 pm Time in clinic ended at 1:00 pm Total time in clinic is 45 minutes. Total timed code time is 43 minutes. Aquatic Therapy (32336): timed minutes 43, units 3 . TrA Contraction 10x5 holds, instruction to contract with movement in aquatic setting UE/LE lift in alternation 3x10 tactile/verbal cues - standing in 3 ft FWD Ambulation in 3' water 3 laps w/UE swing w/ LIBRARY MONITOR assist for arm swing FWD high stepping in 3' water 2 laps, w/LIBRARY MONITOR assist for Alt UE arm swing FWD ambulation with punches to PTAs hands with body rotation 4 laps FWD/LAT collins ambulation 4 laps Side Stepping in 75% unloading 3 laps. with min A at waist standing behind patient and working on weight shifting from one leg to (more content not included)... 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 By discharge VU OLSON will achieve the following goals: Pt will demo and report compliance with new HEP in order to augment POC goals and progression toward independence with symptom management for better outcomes once D/C from POC. , by week 2 Activity Limitation: Pt will be able to don/doff all clothes with , by week 6 Balance: Pt will demo improved functional balance with all transfers with Sit<>stand test improved by >/= 2 seconds., by week 6 Gait/Locomotion: Pt will demo improved gait mechanics with least restrictive device, even step length, stance time, proper heel strike and push off, and min-no evidence of instability or antalgic gait for return to PLOF. , by week 6 Range Of Motion/Joint Mobility: Pt will demo improved *AROM/PROM* in L Shoulder to >/= 170 flexion for improved ease with functional activities with reaching, lifting, carrying for progression toward independence with ADL?s AND IADL?s. , by week 6 Strength: Pt will demo improved MMT by >/= 1 point on 0-5 point scale in BUE's for improved strength and stability, and improved ease with lifting, carrying, and proper mechanics with ADL?s AND IADL?s. , by week 6 Transfers: Pt will demo improved ease with ascending/descending stairs with reciprocal pattern and improved eccentric control to decrease fall risk. , by week 6 QuickDASH, Pt will report subjective improvement with score on QuickDASH improved by >/= 5 points for return to PLOF, improved QOL, and improved ease with ADL?s AND IADL?s. , by week 6 Planned interventions include: aquatic therapy, cryotherapy, education/instructio n, gait training, home program, hot pack, kinesiotaping, manual therapy, neuromuscular re-education, self care/home management, therapeutic activities, therapeutic exercises and IASTM/CUPPING. Frequency and duration: 2 time(s) a week, for 6 weeks, for 12 visits . per C9. Potential to achieve rehab goals is good Continue with aquatic exercises and reciprocal motions to allow for improved reciprocal motions with ADLs. JW. Assessment Patient confirmed name and date of . Performed ball toss with dissociated stance today, patient able to maintain good balance and UE opposition with hitting ball for return. Patient was unable to catch ball. Continues to required min to mod verbal and tactile cues for UE sequencing, especially when adding LE movement. Adult Risk Screening There are no spiritual/cultural practices/values/nee ds that are important to know Initial Fall Risk Screening: VU has not fallen in the last 6 months. VU does not have a fear of falling. He does not need assistance with sitting, standing or walking. Does not need assistance walking in his home. He does not need assistance in an unfamiliar setting. The patient is not using an assistive device. Please identify location of pain: Left Upper arm AND L upper leg on lateral aspect by hip. Pain Quality: spasm. Living Will. Living Will: No living will on file. Healthcare POA: No healthcare proxy on file. Declaration of Mental Health Treatment: No mental health treatment on file. Domestic Violence Screen: Does not feel threatened or abused physically, emotionally or sexually. Do you feel UNSAFE? The patient feels safe in the home. Depression/Suicide Screening: During the past 2 weeks, the patient has not felt down, depressed or hopeless. During the past 2 weeks, the patient has not felt little interest or pleasure in doing things. Insurance Insurance reviewed Visit number: 01/22 [facility] [place] [facility] Supervising PT: Shira Ledezma PT, DPT, Kamran DN PT Dx: I69.354; S06.2X9D Onset Date: 2020 Subjective Patient reports:. Date of onset: . Patient started taking Baclophen yesterday. States that he felt more loose yesterday but doesn't really notice a difference today. Reports that they will have to adjust dosage. Home program performing as directed: Yes. Precautions: Fall Risk: low Treatment Time in clinic started at 12:15 pm Time in clinic ended at 1:00 pm Total time in clinic is 45 minutes. Total timed code time is 43 minutes. Aquatic Therapy (43289): timed minutes 43, units 3 . TrA Contraction 10x5 holds, instruction to contract with movement in aquatic setting UE/LE lift in alternation 3x10 tactile/verbal cues - standing in 3 ft FWD Ambulation in 3' water 3 laps w/UE swing w/ LIBRARY MONITOR assist for arm swing FWD high stepping in 3' water 2 laps, w/LIBRARY MONITOR assist for Alt UE arm swing FWD ambulation with punches to PTAs hands with body rotation 4 laps FWD/LAT collins ambulation 4 laps Side Stepping in 75% unloading 3 laps. with min A at waist standing behind patient and working on weight shifting from one leg to t (more content not included)... 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 By discharge VU WESLEY will achieve the following goals: Pt will demo and report compliance with new HEP in order to augment POC goals and progression toward independence with symptom management for better outcomes once D/C from POC. , by week 2 Activity Limitation: Pt will be able to don/doff all clothes with , by week 6 Balance: Pt will demo improved functional balance with all transfers with Sit<>stand test improved by >/= 2 seconds., by week 6 Gait/Locomotion: Pt will demo improved gait mechanics with least restrictive device, even step length, stance time, proper heel strike and push off, and min-no evidence of instability or antalgic gait for return to PLOF. , by week 6 Range Of Motion/Joint Mobility: Pt will demo improved *AROM/PROM* in L Shoulder to >/= 170 flexion for improved ease with functional activities with reaching, lifting, carrying for progression toward independence with ADL?s AND IADL?s. , by week 6 Strength: Pt will demo improved MMT by >/= 1 point on 0-5 point scale in BUE's for improved strength and stability, and improved ease with lifting, carrying, and proper mechanics with ADL?s AND IADL?s. , by week 6 Transfers: Pt will demo improved ease with ascending/descending stairs with reciprocal pattern and improved eccentric control to decrease fall risk. , by week 6 QuickDASH, Pt will report subjective improvement with score on QuickDASH improved by >/= 5 points for return to PLOF, improved QOL, and improved ease with ADL?s AND IADL?s. , by week 6 Planned interventions include: aquatic therapy, cryotherapy, education/instructio n, gait training, home program, hot pack, kinesiotaping, manual therapy, neuromuscular re-education, self care/home management, therapeutic activities, therapeutic exercises and IASTM/CUPPING. Frequency and duration: 2 time(s) a week, for 6 weeks, for 12 visits . per C9. Potential to achieve rehab goals is good Continue with aquatic exercises and reciprocal motions to allow for improved trunk rotation and UE/LE opposition with ambulation. JW. Assessment Patient confirmed name and date of . Trialed UE paddles in 80% unloading today to see if the warm water would change spasticity, mild improvement noted but patient continues to need considerable focus and concentration to perform L UE movement in large range. Continued to work on reciprocal motion while incorporating trunk rotation. Adult Risk Screening There are no spiritual/cultural practices/values/nee ds that are important to know Initial Fall Risk Screening: VU has not fallen in the last 6 months. VU does not have a fear of falling. He does not need assistance with sitting, standing or walking. Does not need assistance walking in his home. He does not need assistance in an unfamiliar setting. The patient is not using an assistive device. Please identify location of pain: Left Upper arm AND L upper leg on lateral aspect by hip. Pain Quality: spasm. Living Will. Living Will: No living will on file. Healthcare POA: No healthcare proxy on file. Declaration of Mental Health Treatment: No mental health treatment on file. Domestic Violence Screen: Does not feel threatened or abused physically, emotionally or sexually. Do you feel UNSAFE? The patient feels safe in the home. Depression/Suicide Screening: During the past 2 weeks, the patient has not felt down, depressed or hopeless. During the past 2 weeks, the patient has not felt little interest or pleasure in doing things. Insurance Insurance reviewed Visit number: 10/22 [facility] [place] [facility] Supervising PT: Shira Ledezma PT, DPT, Cert DN PT Dx: I69.354; S06.2X9D Onset Date: 2020 Subjective Patient reports:. Date of onset: . Patient reports that he is less sore than he usually is. States that he did his UE/LE stretches this morning and is feeling better. Home program performing as directed: Yes. Precautions: Fall Risk: low Treatment Time in clinic started at 12:15 pm Time in clinic ended at 1:00 pm Total time in clinic is 45 minutes. Total timed code time is 43 minutes. Aquatic Therapy (12275): timed minutes 43, units 3 . TrA Contraction 10x5 holds, instruction to contract with movement in aquatic setting UE/LE lift in alternation 3x10 tactile/verbal cues - standing in 3 ft FWD Ambulation in 3' water 3 laps w/UE swing w/ LIBRARY MONITOR assist for arm swing FWD high stepping in 3' water 2 laps, w/LIBRARY MONITOR assist for Alt UE arm swing FWD ambulation with punches to PTAs hands with body rotation 4 laps FWD/LAT collins ambulation 4 laps Side Stepping in 75% unloading 3 laps. with min A at waist standing behind patient and working on weight shifting from one leg to the othe (more content not included)... 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 By discharge VU OLSON will achieve the following goals: Pt will demo and report compliance with new HEP in order to augment POC goals and progression toward independence with symptom management for better outcomes once D/C from POC. , by week 2 Activity Limitation: Pt will be able to don/doff all clothes with , by week 6 Balance: Pt will demo improved functional balance with all transfers with Sit<>stand test improved by >/= 2 seconds., by week 6 Gait/Locomotion: Pt will demo improved gait mechanics with least restrictive device, even step length, stance time, proper heel strike and push off, and min-no evidence of instability or antalgic gait for return to PLOF. , by week 6 Range Of Motion/Joint Mobility: Pt will demo improved *AROM/PROM* in L Shoulder to >/= 170 flexion for improved ease with functional activities with reaching, lifting, carrying for progression toward independence with ADL?s AND IADL?s. , by week 6 Strength: Pt will demo improved MMT by >/= 1 point on 0-5 point scale in BUE's for improved strength and stability, and improved ease with lifting, carrying, and proper mechanics with ADL?s AND IADL?s. , by week 6 Transfers: Pt will demo improved ease with ascending/descending stairs with reciprocal pattern and improved eccentric control to decrease fall risk. , by week 6 QuickDASH, Pt will report subjective improvement with score on QuickDASH improved by >/= 5 points for return to PLOF, improved QOL, and improved ease with ADL?s AND IADL?s. , by week 6 Planned interventions include: aquatic therapy, cryotherapy, education/instructio n, gait training, home program, hot pack, kinesiotaping, manual therapy, neuromuscular re-education, self care/home management, therapeutic activities, therapeutic exercises and IASTM/CUPPING. Frequency and duration: 2 time(s) a week, for 6 weeks, for 12 visits . per C9. Potential to achieve rehab goals is good Continue with aquatic exercises and reciprocal motions to allow for improved trunk rotation and UE/LE opposition with stair transfers. JW. Assessment Patient confirmed name and date of . Patient shows improved ability to perform reciprocal UE swings with punching into PTAs hands and walking forward. Cues to rotate trunk with punch. Cues for larger ROM with bwd ambulation with L LE. Patient continues to struggle with reciprocal sequencing but does show improvement with focus and mod cuing. Adult Risk Screening There are no spiritual/cultural practices/values/nee ds that are important to know Initial Fall Risk Screening: VU has not fallen in the last 6 months. VU does not have a fear of falling. He does not need assistance with sitting, standing or walking. Does not need assistance walking in his home. He does not need assistance in an unfamiliar setting. The patient is not using an assistive device. Please identify location of pain: Left Upper arm AND L upper leg on lateral aspect by hip. Pain Quality: spasm. Living Will. Living Will: No living will on file. Healthcare POA: No healthcare proxy on file. Declaration of Mental Health Treatment: No mental health treatment on file. Domestic Violence Screen: Does not feel threatened or abused physically, emotionally or sexually. Do you feel UNSAFE? The patient feels safe in the home. Depression/Suicide Screening: During the past 2 weeks, the patient has not felt down, depressed or hopeless. During the past 2 weeks, the patient has not felt little interest or pleasure in doing things. Insurance Insurance reviewed Visit number: 7 10/22 [facility] Supervising PT: Shira Ledezma PT, DPT, Cert DN PT Dx: I69.354; S06.2X9D Onset Date: 2020 Subjective Patient reports:. Date of onset: . Patient reports that his R UE and LEs continue to be a 2/10 pain levels with muscles spasms. Reports that he is working on reciprocal motions at home. Reports that he is not noticing much change. Home program performing as directed: Yes. Precautions: Fall Risk: low Treatment Time in clinic started at 12:15 pm Time in clinic ended at 1:00 pm Total time in clinic is 45 minutes. Total timed code time is 43 minutes. Aquatic Therapy (23617): timed minutes 43, units 3 . TrA Contraction 10x5 holds, instruction to contract with movement in aquatic setting UE/LE lift in alternation 3x10 tactile/verbal cues - standing in 3 ft FWD Ambulation in 3' water 3 laps w/UE swing w/ LIBRARY MONITOR assist for arm swing FWD high stepping in 3' water 2 laps, w/LIBRARY MONITOR assist for Alt UE arm swing FWD ambulation with punches to PTAs hands with body rotation 4 laps FWD/LAT collins ambulation 4 laps Side Stepping in 75% unloading 3 laps. with min A at waist s (more content not included)... 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 By discharge VU WESLEY will achieve the following goals: Pt will demo and report compliance with new HEP in order to augment POC goals and progression toward independence with symptom management for better outcomes once D/C from POC. , by week 2 Activity Limitation: Pt will be able to don/doff all clothes with , by week 6 Balance: Pt will demo improved functional balance with all transfers with Sit<>stand test improved by >/= 2 seconds., by week 6 Gait/Locomotion: Pt will demo improved gait mechanics with least restrictive device, even step length, stance time, proper heel strike and push off, and min-no evidence of instability or antalgic gait for return to PLOF. , by week 6 Range Of Motion/Joint Mobility: Pt will demo improved *AROM/PROM* in L Shoulder to >/= 170 flexion for improved ease with functional activities with reaching, lifting, carrying for progression toward independence with ADL?s AND IADL?s. , by week 6 Strength: Pt will demo improved MMT by >/= 1 point on 0-5 point scale in BUE's for improved strength and stability, and improved ease with lifting, carrying, and proper mechanics with ADL?s AND IADL?s. , by week 6 Transfers: Pt will demo improved ease with ascending/descending stairs with reciprocal pattern and improved eccentric control to decrease fall risk. , by week 6 QuickDASH, Pt will report subjective improvement with score on QuickDASH improved by >/= 5 points for return to PLOF, improved QOL, and improved ease with ADL?s AND IADL?s. , by week 6 Planned interventions include: aquatic therapy, cryotherapy, education/instructio n, gait training, home program, hot pack, kinesiotaping, manual therapy, neuromuscular re-education, self care/home management, therapeutic activities, therapeutic exercises and IASTM/CUPPING. Frequency and duration: 2 time(s) a week, for 6 weeks, for 12 visits . per C9. Potential to achieve rehab goals is good Continue with aquatic exercises and reciprocal motions to allow for improved trunk rotation and UE/LE opposition with ambulation. JW. Assessment Patient confirmed name and date of . Patient shows improved sequencing with reciprocal motions, continues to lose sequence throughout activity with a need to reset to get back in sequence. Patient does better in stationary UE/LE reciprocal motion than with ambulation, mod to max tactile cues for UE swing with ambulation. Adult Risk Screening There are no spiritual/cultural practices/values/nee ds that are important to know Initial Fall Risk Screening: VU has not fallen in the last 6 months. VU does not have a fear of falling. He does not need assistance with sitting, standing or walking. Does not need assistance walking in his home. He does not need assistance in an unfamiliar setting. The patient is not using an assistive device. Please identify location of pain: Left Upper arm AND L upper leg on lateral aspect by hip. Pain Quality: spasm. Living Will. Living Will: No living will on file. Healthcare POA: No healthcare proxy on file. Declaration of Mental Health Treatment: No mental health treatment on file. Domestic Violence Screen: Does not feel threatened or abused physically, emotionally or sexually. Do you feel UNSAFE? The patient feels safe in the home. Depression/Suicide Screening: During the past 2 weeks, the patient has not felt down, depressed or hopeless. During the past 2 weeks, the patient has not felt little interest or pleasure in doing things. Insurance Insurance reviewed Visit number: 10/22 [id number] Supervising PT: Shria Ledezma PT, DPT, Cert DN PT Dx: I69.354; S06.2X9D Onset Date: 2020 Subjective Patient reports:. Patient reports that his pain in L UE and L LE is a 2/10. upper portion of UE and upper portion of LE. No change in pain after session . Home program performing as directed: Yes. Precautions: Fall Risk: low Treatment Time in clinic started at 12:15 pm Time in clinic ended at 1:00 pm Total time in clinic is 45 minutes. Total timed code time is 43 minutes. Aquatic Therapy (64998): timed minutes 43, units 3 . TrA Contraction 10x5 holds, instruction to contract with movement in aquatic setting UE/LE lift in alternation 3x10 tactile/verbal cues - standing in 3 ft FWD Ambulation in 3' water 3 laps w/UE swing w/ LIBRARY MONITOR assist for arm swing FWD high stepping in 3' water 2 laps, w/LIBRARY MONITOR assist for Alt UE arm swing Side Stepping in 75% unloading 3 laps. with min A at waist standing behind patient and working on weight shifting from one leg to the other. Alt Marching x15 w/LIBRARY MONITOR assist for Alt UE arm swing 3 way Hip B/L x10 ea Tandem stance 15 x 3 hold with UE paddles tod (more content not included)... 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 By discharge VU OLSON will achieve the following goals: Pt will demo and report compliance with new HEP in order to augment POC goals and progression toward independence with symptom management for better outcomes once D/C from POC. , by week 2 Activity Limitation: Pt will be able to don/doff all clothes with , by week 6 Balance: Pt will demo improved functional balance with all transfers with Sit<>stand test improved by >/= 2 seconds., by week 6 Gait/Locomotion: Pt will demo improved gait mechanics with least restrictive device, even step length, stance time, proper heel strike and push off, and min-no evidence of instability or antalgic gait for return to PLOF. , by week 6 Range Of Motion/Joint Mobility: Pt will demo improved *AROM/PROM* in L Shoulder to >/= 170 flexion for improved ease with functional activities with reaching, lifting, carrying for progression toward independence with ADL?s AND IADL?s. , by week 6 Strength: Pt will demo improved MMT by >/= 1 point on 0-5 point scale in BUE's for improved strength and stability, and improved ease with lifting, carrying, and proper mechanics with ADL?s AND IADL?s. , by week 6 Transfers: Pt will demo improved ease with ascending/descending stairs with reciprocal pattern and improved eccentric control to decrease fall risk. , by week 6 QuickDASH, Pt will report subjective improvement with score on QuickDASH improved by >/= 5 points for return to PLOF, improved QOL, and improved ease with ADL?s AND IADL?s. , by week 6 Planned interventions include: aquatic therapy, cryotherapy, education/instructio n, gait training, home program, hot pack, kinesiotaping, manual therapy, neuromuscular re-education, self care/home management, therapeutic activities, therapeutic exercises and IASTM/CUPPING. Frequency and duration: 2 time(s) a week, for 6 weeks, for 12 visits . per C9. Potential to achieve rehab goals is good Continue with aquatic exercises to improve functional use of L UE, balance and safety with ADLs. JW. Assessment Patient confirmed name and date of . Patient required mod to max tactile cuing for UE opposition with fwd ambulation. Able to maintain opposition with UE swing while standing stationary for 7 reps before UEs converged into like motion. Performed supine PROM on LE UE today along with lateral trunk stretch. Adult Risk Screening There are no spiritual/cultural practices/values/nee ds that are important to know Initial Fall Risk Screening: VU has not fallen in the last 6 months. VU does not have a fear of falling. He does not need assistance with sitting, standing or walking. Does not need assistance walking in his home. He does not need assistance in an unfamiliar setting. The patient is not using an assistive device. Please identify location of pain: Left Upper arm AND L upper leg on lateral aspect by hip. Pain Quality: spasm. Living Will. Living Will: No living will on file. Healthcare POA: No healthcare proxy on file. Declaration of Mental Health Treatment: No mental health treatment on file. Domestic Violence Screen: Does not feel threatened or abused physically, emotionally or sexually. Do you feel UNSAFE? The patient feels safe in the home. Depression/Suicide Screening: During the past 2 weeks, the patient has not felt down, depressed or hopeless. During the past 2 weeks, the patient has not felt little interest or pleasure in doing things. Insurance Insurance reviewed Visit number: 5 Subjective Patient reports:. Patient reports pain levels of 2/10 in L upper UE and lateral proximal of L LE. Reports that he feels his balance is improving. Home program performing as directed: Yes. Precautions: Fall Risk: low Treatment Time in clinic started at 12:15 pm Time in clinic ended at 1:00 pm Total time in clinic is 45 minutes. Total timed code time is 43 minutes. Aquatic Therapy (72153): timed minutes 43, units 3 . TrA Contraction 10x5 holds, instruction to contract with movement in aquatic setting UE/LE lift in alternation 3x10 tactile/verbal cues - standing in 3 ft FWD/BWD Ambulation in 3' water 3 laps w/UE swing (fwd only today)w/ LIBRARY MONITOR assist for arm swing FWD high stepping in 3' water 2 laps, w/LIBRARY MONITOR assist for Alt UE arm swing Side Stepping in 75% unloading 3 laps. with min A at waist standing behind patient and working on weight shifting from one leg to the other. Alt Marching x10 1 w/LIBRARY MONITOR assist for Alt UE arm swing 3 way Hip B/L x10 ea Tandem stance 15 x 3 hold NBOS static balance EO, EC 3 x 20 Squats A Alt Lunges facing shallow end A UE Paddles Open 1x15 -push/pull, flex/ext, habd/hadd, abd/add Mod to MaxTactile cues Step Taps 1x15 (more content not included)... 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 By discharge VU OLSON will achieve the following goals: Pt will demo and report compliance with new HEP in order to augment POC goals and progression toward independence with symptom management for better outcomes once D/C from POC. , by week 2 Activity Limitation: Pt will be able to don/doff all clothes with , by week 6 Balance: Pt will demo improved functional balance with all transfers with Sit<>stand test improved by >/= 2 seconds., by week 6 Gait/Locomotion: Pt will demo improved gait mechanics with least restrictive device, even step length, stance time, proper heel strike and push off, and min-no evidence of instability or antalgic gait for return to PLOF. , by week 6 Range Of Motion/Joint Mobility: Pt will demo improved *AROM/PROM* in L Shoulder to >/= 170 flexion for improved ease with functional activities with reaching, lifting, carrying for progression toward independence with ADL?s AND IADL?s. , by week 6 Strength: Pt will demo improved MMT by >/= 1 point on 0-5 point scale in BUE's for improved strength and stability, and improved ease with lifting, carrying, and proper mechanics with ADL?s AND IADL?s. , by week 6 Transfers: Pt will demo improved ease with ascending/descending stairs with reciprocal pattern and improved eccentric control to decrease fall risk. , by week 6 QuickDASH, Pt will report subjective improvement with score on QuickDASH improved by >/= 5 points for return to PLOF, improved QOL, and improved ease with ADL?s AND IADL?s. , by week 6 Planned interventions include: aquatic therapy, cryotherapy, education/instructio n, gait training, home program, hot pack, kinesiotaping, manual therapy, neuromuscular re-education, self care/home management, therapeutic activities, therapeutic exercises and IASTM/CUPPING. Frequency and duration: 2 time(s) a week, for 6 weeks, for 12 visits . per C9. Potential to achieve rehab goals is good Continue with aquatic ex's for improved balance, improved ease of gait and improved ease of use of L UE with ADL's. - MA. Assessment Patient identified by name AND . Patient wore a mask during treatment d/t Covid-19 precautions. Treatment consisted of aquatic ex's for unloading and strengthening of core UE and LE reciprocal motions. Focused today's treatment of working on reciprocal motions of UE/LE combo with fwd gait and marching. Also worked on engaging R side of lateral trunk muscles during entire treatment in order not to lean to L side. Patient required max verbal and tactile cues with all ex's today, but the more her repeated the reciprocal pattern the better he was able to perform it. Adult Risk Screening There are no spiritual/cultural practices/values/nee ds that are important to know Initial Fall Risk Screening: VU has not fallen in the last 6 months. VU does not have a fear of falling. He does not need assistance with sitting, standing or walking. Does not need assistance walking in his home. He does not need assistance in an unfamiliar setting. The patient is not using an assistive device. Please identify location of pain: Left Upper arm AND L upper leg on lateral aspect by hip. Pain Quality: spasm. Living Will. Living Will: No living will on file. Healthcare POA: No healthcare proxy on file. Declaration of Mental Health Treatment: No mental health treatment on file. Domestic Violence Screen: Does not feel threatened or abused physically, emotionally or sexually. Do you feel UNSAFE? The patient feels safe in the home. Depression/Suicide Screening: During the past 2 weeks, the patient has not felt down, depressed or hopeless. During the past 2 weeks, the patient has not felt little interest or pleasure in doing things. Insurance Insurance reviewed Visit number: 4 Subjective Patient reports:. Pretreatment pain: 3/10 Left Upper arm AND L upper leg on lateral aspect by hip. Post treatment pain: 2/10 L upper arm AND L upper leg on lateral aspect by hip States he has a lot of spasticity in L leg and L Upper arm. Reports improved independence with donning AND doffing his clothes. Home program performing as directed: Yes. Precautions: Fall Risk: low Treatment Time in clinic started at 1:15 pm Time in clinic ended at 2:03 pm Total time in clinic is 48 minutes. Total timed code time is 45 minutes. Aquatic Therapy (13405): timed minutes 44, units 3 . TrA Contraction 10x5 holds, instruction to contract with movement in aquatic setting UE/LE lift in alternation 3x10 tactile/verbal cues - standing in 3 ft (P) FWD/BWD Ambulation in 3' water 3 laps w/UE swing (fwd only today)w/ LIBRARY MONITOR assist for arm swing FWD high stepping in 3' water 2 laps, w/LIBRARY MONITOR assist for Alt UE a (more content not included)... 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 By discharge VU OLSON will achieve the following goals: Pt will demo and report compliance with new HEP in order to augment POC goals and progression toward independence with symptom management for better outcomes once D/C from POC. , by week 2 Activity Limitation: Pt will be able to don/doff all clothes with , by week 6 Balance: Pt will demo improved functional balance with all transfers with Sit<>stand test improved by >/= 2 seconds., by week 6 Gait/Locomotion: Pt will demo improved gait mechanics with least restrictive device, even step length, stance time, proper heel strike and push off, and min-no evidence of instability or antalgic gait for return to PLOF. , by week 6 Range Of Motion/Joint Mobility: Pt will demo improved *AROM/PROM* in L Shoulder to >/= 170 flexion for improved ease with functional activities with reaching, lifting, carrying for progression toward independence with ADL?s AND IADL?s. , by week 6 Strength: Pt will demo improved MMT by >/= 1 point on 0-5 point scale in BUE's for improved strength and stability, and improved ease with lifting, carrying, and proper mechanics with ADL?s AND IADL?s. , by week 6 Transfers: Pt will demo improved ease with ascending/descending stairs with reciprocal pattern and improved eccentric control to decrease fall risk. , by week 6 QuickDASH, Pt will report subjective improvement with score on QuickDASH improved by >/= 5 points for return to PLOF, improved QOL, and improved ease with ADL?s AND IADL?s. , by week 6 Planned interventions include: aquatic therapy, cryotherapy, education/instructio n, gait training, home program, hot pack, kinesiotaping, manual therapy, neuromuscular re-education, self care/home management, therapeutic activities, therapeutic exercises and IASTM/CUPPING. Frequency and duration: 2 time(s) a week, for 6 weeks, for 12 visits . per C9. Potential to achieve rehab goals is good Continue with gait training, along with balance training and strengthening, to allow for improved safety and function with transfers. JW. Assessment Patient confirmed name and date of . Added UE swing with fwd/bwd ambulation. Patient has difficulty dissociating UEs, mod verbal cues with continued difficulty. Focused on UE/LE lifts in alternation with opposition. Patient has to focus to perform and has difficulty with timing. Tactle and verbal cues to complete. Patient was able to better control LE with LE kicks compared to last week, able to better keep knees from flexion with straight leg kicks. Adult Risk Screening There are no spiritual/cultural practices/values/nee ds that are important to know Initial Fall Risk Screening: VU has not fallen in the last 6 months. VU does not have a fear of falling. He does not need assistance with sitting, standing or walking. Does not need assistance walking in his home. He does not need assistance in an unfamiliar setting. The patient is not using an assistive device. Please identify location of pain: Left upper arm. Pain Quality: spasm. Living Will. Living Will: No living will on file. Healthcare POA: No healthcare proxy on file. Declaration of Mental Health Treatment: No mental health treatment on file. Domestic Violence Screen: Does not feel threatened or abused physically, emotionally or sexually. Do you feel UNSAFE? The patient feels safe in the home. Depression/Suicide Screening: During the past 2 weeks, the patient has not felt down, depressed or hopeless. During the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 not smaller and urinary stream does not start and stop. Musculoskeletal: +limb weakness, but no arthralgias, no joint stiffness, no muscle weakness, no back pain and no difficulty walking. Skin: no rashes, no change in skin color and pigmentation, no skin lesions and no skin lumps. Neurological: no headaches, no dizziness, no seizures, no tingling, no numbness, no signs and symptoms of stroke and no limb weakness. Psychiatric: no confusion, no memory lapses or loss, no depression and no sleep disturbances. Endocrine: no goiter, no thyroid disorder, no diabetes mellitus, no excessive thirst, no dry skin, no cold intolerance, no heat intolerance and no increased urinary frequency. Hematologic/Lymphati c: is not slow to heal, does not bleed easily, does not bruise easily, no thrombophlebitis, no anemia and no history of blood transfusion. All other systems have been reviewed and are negative for complaint. 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, subs (V58.89,854.06) (S06.2X9D) Hemiparesis of left nondominant side as late effect of cerebral infarction (438.22) (I69.354) Past Medical History Problems History of cerebrovascular accident (V12.54) (Z86.73) History of hyperlipidemia (V12.29) (Z86.39) History of hypertension (V12.59) (Z86.79) Surgical History Problems No history of surgery Family History Mother Family history of cerebrovascular accident (CVA) (V17.1) (Z82.3) in early 60s Family history of type 2 diabetes mellitus (V18.0) (Z83.3) Father Family history of malignant neoplasm of prostate (V16.42) (Z80.42) Child Family history of Healthy adult Brother (more content not included)... 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 By discharge VU OLSON will achieve the following goals: Pt will demo and report compliance with HEP in order to augment POC goals and progression toward independence with symptom management for better outcomes once D/C from POC. , by week 2, goal met Activity Limitation: Pt will be able to don/doff all clothes with , by week 4, goal partially met Range Of Motion/Joint Mobility: Pt will demo improved *AROM/PROM* in L Shoulder to >/= 30 ER for improved ease with functional activities with reaching, lifting, carrying for progression toward independence with ADL?s AND IADL?s. , by week 4, goal partially met Strength: Pt will demo improved MMT by >/= 1 point on 0-5 point scale in BUE's for improved strength and stability, and improved ease with lifting, carrying, and proper mechanics with ADL?s AND IADL?s. , by week 4, goal partially met QuickDASH, Pt will report subjective improvement with score on QuickDASH improved by >/= 5 points for return to PLOF, improved QOL, and improved ease with ADL?s AND IADL?s. , by week 4 Planned interventions include: aquatic therapy, cryotherapy, education/instructio n, gait training, home program, hot pack, kinesiotaping, manual therapy, neuromuscular re-education, self care/home management, therapeutic activities, therapeutic exercises and IASTM/CUPPING . Requesting OT evaluation as well as possible transition to aquatic setting. Frequency and duration: 2 time(s) a week, for 4 weeks, for 8 visits. Potential to achieve rehab goals is good Per PT re-eval 02/12/22; PEnding approval of more visits pt would benefit from transition to aquatic therapy as well as evaluation by occupational therapist with focus on Left digits/hand function. Progress with POC, as tolerated. Assessment Patient identified by name and date of . Patient demonstrated difficulty with peg board and dropped objects several times throughout, he demonstrated frustration, but was able to complete. He required min-modA for direction and to maintain form with exercises. Reviewed HEP with patient and importance of proper form and hold times he verbalized good understanding. Adult Risk Screening There are spiritual/cultural practices/values/nee ds that are important to know: Tenriism Initial Fall Risk Screening: VU has fallen in the last 6 months. VU has a fear of falling. He does not need assistance with sitting, standing or walking. Does not need assistance walking in his home. He does not need assistance in an unfamiliar setting. The patient is not using an assistive device. Fall Risk Screening: Patient is identified as a fall risk. Care Plan: Moderate Risk: Low risk interventions plus: do not leave patient on exam table unattended, supervised activity, educate patient/family on falls prevention, review safety initiatives with patient/family, family at bedside as allowed, yellow falls risk band, focus rounding attention, locate patient in area of high visibility, wheelchair, bed, or personal alarm, bedside commode, elevated toilet seat and pharmacy consult for medication concerns. Please identify location of pain: L shoulder and upper L LE. Pain Quality: [place]. Domestic Violence Screen: Does not feel threatened or abused physically, emotionally or sexually. Do you feel UNSAFE? The patient feels safe in the home. Depression/Suicide Screening: During the past 2 weeks, the patient felt down, depressed or hopeless. During the past 2 weeks, the patient has not felt little interest or pleasure in doing things. Insurance Insurance reviewed Visit number: 8 Approved number of visits: 8 Authorization not required after evaluation POC: [id number] Service/[facility] Supervising PT: Shira Ledezma PT, DPT, Kamran DN PT Dx: I69.354; S06.2X9D Onset Date: 2020 Subjective Patient reports:. Patient reported he awoke this AM with increased spasticity in his L UE and stated it felt like sharp needles getting me all over. He stated It feels better I don't have all the needles after treatment. Precautions: seizures. Fall Risk: moderate Shunt; Plates in skull. Treatment Time in clinic started at 07:45 Time in clinic ended at 08:30 Total time in clinic is 45 minutes. Total timed code time is 43 minutes. Therapeutic exercise (94687): timed minutes 43, units 3 . Reviewed HEP with additional handouts and questions 10? NuSTep 7mins level 2 (Plv) Therabar U's and N's 2 x 10 Dot taps on wall w/noodle 3 x 30? Standing PEG board manipulation all 3 colors x 1 T-band Walk outs x10 orange -flex, ER, IR (min-mod A for technique) Mod Plank shld weight shifts 3 x 10 (reviewed for HEP) Sammarinese ball AAROM 2 x 10 (Jamila at times) -flex, latera (more content not included)... Normal [facility] Therapy Communicationon 10-0 Therapy Communication Message VU OLSON no showed today . 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 By discharge VU OLSON will achieve the following goals: Pt will demo and report compliance with HEP in order to augment POC goals and progression toward independence with symptom management for better outcomes once D/C from POC. , by week 2, goal met Activity Limitation: Pt will be able to don/doff all clothes with , by week 4, goal partially met Range Of Motion/Joint Mobility: Pt will demo improved *AROM/PROM* in L Shoulder to >/= 30 ER for improved ease with functional activities with reaching, lifting, carrying for progression toward independence with ADL?s AND IADL?s. , by week 4, goal partially met Strength: Pt will demo improved MMT by >/= 1 point on 0-5 point scale in BUE's for improved strength and stability, and improved ease with lifting, carrying, and proper mechanics with ADL?s AND IADL?s. , by week 4, goal partially met QuickDASH, Pt will report subjective improvement with score on QuickDASH improved by >/= 5 points for return to PLOF, improved QOL, and improved ease with ADL?s AND IADL?s. , by week 4 Planned interventions include: aquatic therapy, cryotherapy, education/instructio n, gait training, home program, hot pack, kinesiotaping, manual therapy, neuromuscular re-education, self care/home management, therapeutic activities, therapeutic exercises and IASTM/CUPPING . Requesting OT evaluation as well as possible transition to aquatic setting. Frequency and duration: 2 time(s) a week, for 4 weeks, for 8 visits. Potential to achieve rehab goals is good Update/review new HEP with LIBRARY MONITOR next session; PEnding approval of more visits pt would benefit from transition to aquatic therapy as well as evaluation by occupational therapist with focus on Left digits/hand function. Progress with POC, as tolerated. Assessment 127/89 BP 72 HR Pt reassessed this date by supervising PT with improvements noted in MMT of LUE and LLE as well as overall improved functional level. Pt continues to have most deficits with fine motor and use of L distal UE and would benefit from occupational therapy evaluation. He would also benefit from continued skilled PT but would benefit from transition to aquatic therapy setting to allow for progression of gross motor and balance activities. Patient was able to complete today's treatment with some difficulty. Adult Risk Screening There are spiritual/cultural practices/values/nee ds that are important to know: Tenriism Initial Fall Risk Screening: VU has fallen in the last 6 months. VU has a fear of falling. He does not need assistance with sitting, standing or walking. Does not need assistance walking in his home. He does not need assistance in an unfamiliar setting. The patient is not using an assistive device. Fall Risk Screening: Patient is identified as a fall risk. Care Plan: Moderate Risk: Low risk interventions plus: do not leave patient on exam table unattended, supervised activity, educate patient/family on falls prevention, review safety initiatives with patient/family, family at bedside as allowed, yellow falls risk band, focus rounding attention, locate patient in area of high visibility, wheelchair, bed, or personal alarm, bedside commode, elevated toilet seat and pharmacy consult for medication concerns. Pain Scale: On a scale of 0 to 10, the patient rates the pain at 0. Please identify location of pain: L shoulder and upper L LE. Pain Quality: [place]. Domestic Violence Screen: Does not feel threatened or abused physically, emotionally or sexually. Do you feel UNSAFE? The patient feels safe in the home. Depression/Suicide Screening: During the past 2 weeks, the patient felt down, depressed or hopeless. During the past 2 weeks, the patient has not felt little interest or pleasure in doing things. Insurance Insurance reviewed Visit number: 7 Approved number of visits: 8 Authorization not required after evaluation POC: 11/17 [place] Service/[facility] Supervising PT: Shira Ledezma PT, DPT, Cert DN PT Dx: I69.354; S06.2X9D Onset Date: 2020 Subjective Patient reports:. Pt notes his blood pressure has been fluctuating a lot recently, and notes he has been having a hard time handling fluctuations in emotions. Got a visit set up with PCP for end of month. Has been trying to walk a lot and performing all HEP. Would like more work specifically with hand. Patient identified by name and date of . Home program performing as directed: Yes. Precautions: seizures. Fall Risk: moderate Shunt; Plates in skull. Objective Ortho [place] AROM/PROM -->AROM Flex: 144/175-->162 ABD: 170/ 175-->174 ER: 20 sig difficulty/ 22 sig guarding--> /30 IR: 60/ 62 MMT RUE: 4/5 LUE: Sh (more content not included)... Normal [facility] Therapy Re-eval Noteon 02-12 Therapy Re-eval Note Therapy Diagnosis Assessed 1. 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 Hemiparesis of left nondominant side as late effect of cerebral infarction (438.22) (I69.354) Plan Goals: Goals set and discussed today. By discharge VU OLSON will achieve the following goals: Pt will demo and report compliance with HEP in order to augment POC goals and progression toward independence with symptom management for better outcomes once D/C from POC. , by week 2, goal met Activity Limitation: Pt will be able to don/doff all clothes with , by week 4, goal partially met Range Of Motion/Joint Mobility: Pt will demo improved *AROM/PROM* in L Shoulder to >/= 30 ER for improved ease with functional activities with reaching, lifting, carrying for progression toward independence with ADL?s AND IADL?s. , by week 4, goal partially met Strength: Pt will demo improved MMT by >/= 1 point on 0-5 point scale in BUE's for improved strength and stability, and improved ease with lifting, carrying, and proper mechanics with ADL?s AND IADL?s. , by week 4, goal partially met QuickDASH, Pt will report subjective improvement with score on QuickDASH improved by >/= 5 points for return to PLOF, improved QOL, and improved ease with ADL?s AND IADL?s. , by week 4 Planned interventions include: aquatic therapy, cryotherapy, education/instructio n, gait training, home program, hot pack, kinesiotaping, manual therapy, neuromuscular re-education, self care/home management, therapeutic activities, therapeutic exercises and IASTM/CUPPING . Requesting OT evaluation as well as possible transition to aquatic setting. Frequency and duration: 2 time(s) a week, for 4 weeks, for 8 visits. Potential to achieve rehab goals is good Update/review new HEP with LIBRARY MONITOR next session; PEnding approval of more visits pt would benefit from transition to aquatic therapy as well as evaluation by occupational therapist with focus on Left digits/hand function. Progress with POC, as tolerated. Assessment 127/89 BP 72 HR Pt reassessed this date by supervising PT with improvements noted in MMT of LUE and LLE as well as overall improved functional level. Pt continues to have most deficits with fine motor and use of L distal UE and would benefit from occupational therapy evaluation. He would also benefit from continued skilled PT but would benefit from transition to aquatic therapy setting to allow for progression of gross motor and balance activities. Patient was able to complete today's treatment with some difficulty. Adult Risk Screening There are spiritual/cultural practices/values/nee ds that are important to know: Tenriism Initial Fall Risk Screening: VU has fallen in the last 6 months. VU has a fear of falling. He does not need assistance with sitting, standing or walking. Does not need assistance walking in his home. He does not need assistance in an unfamiliar setting. The patient is not using an assistive device. Fall Risk Screening: Patient is identified as a fall risk. Care Plan: Moderate Risk: Low risk interventions plus: do not leave patient on exam table unattended, supervised activity, educate patient/family on falls prevention, review safety initiatives with patient/family, family at bedside as allowed, yellow falls risk band, focus rounding attention, locate patient in area of high visibility, wheelchair, bed, or personal alarm, bedside commode, elevated toilet seat and pharmacy consult for medication concerns. Pain Scale: On a scale of 0 to 10, the patient rates the pain at 0. Please identify location of pain: L shoulder and upper L LE. Pain Quality: [place]. Domestic Violence Screen: Does not feel threatened or abused physically, emotionally or sexually. Do you feel UNSAFE? The patient feels safe in the home. Depression/Suicide Screening: During the past 2 weeks, the patient felt down, depressed or hopeless. During the past 2 weeks, the patient has not felt little interest or pleasure in doing things. Insurance Insurance reviewed Visit number: 7 Approved number of visits: 8 Authorization not required after evaluation POC: 11/17 [employer] [facility] Supervising PT: Shira Ledezma PT, DPT, Cert DN PT Dx: I69.354; S06.2X9D Onset Date: 2020 Subjective Patient reports:. Pt notes his blood pressure has been fluctuating a lot recently, and notes he has been having a hard time handling fluctuations in emotions. Got a visit set up with PCP for end of month. Has been trying to walk a lot and performing all HEP. Would like more work specifically with hand. Patient identified by name and date of . Home program performing as directed: Yes. Precautions: seizures. Fall Risk: moderate Shunt; Plates in skull. Objective [facility] [place] AROM/PROM -->AROM Flex: 144/175-->162 ABD: 170/ 175-->174 ER: 20 sig difficulty/ 22 sig guarding--> 30 IR: 60/ 62 MMT RUE: 4/5 LUE (more content not included)... 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 By discharge VU OLSON will achieve the following goals: Pt will demo and report compliance with HEP in order to augment POC goals and progression toward independence with symptom management for better outcomes once D/C from POC. , by week 2 Activity Limitation: Pt will be able to don/doff all clothes with , by week 4 Range Of Motion/Joint Mobility: Pt will demo improved *AROM/PROM* in L Shoulder to >/= 30 ER for improved ease with functional activities with reaching, lifting, carrying for progression toward independence with ADL?s AND IADL?s. , by week 4 Strength: Pt will demo improved MMT by >/= 1 point on 0-5 point scale in BUE's for improved strength and stability, and improved ease with lifting, carrying, and proper mechanics with ADL?s AND IADL?s. , by week 4 QuickDASH, Pt will report subjective improvement with score on QuickDASH improved by >/= 5 points for return to PLOF, improved QOL, and improved ease with ADL?s AND IADL?s. , by week 4 Planned interventions include: cryotherapy, education/instructio n, gait training, home program, hot pack, kinesiotaping, manual therapy, neuromuscular re-education, self care/home management, therapeutic activities, therapeutic exercises and IASTM/CUPPING . per pt request focus on LUE at this time; plan to incorporate LLE and balance/gait training as progresses. Frequency and duration: 2 time(s) a week, for 4 weeks, for 8 visits. Potential to achieve rehab goals is good Progress strength and ROM and coordination for motor control in UE. Progress with POC, as tolerated. Assessment Focused on PROM and STW this date d/t increased reports of spasticity. Increased spasticity in the the elbow this date during PROM with more resistance to the stretches. Continued to work on fine and gross motor skills this date for improved daily function. Adult Risk Screening There are spiritual/cultural practices/values/nee ds that are important to know: Tenriism Initial Fall Risk Screening: VU has fallen in the last 6 months. VU has a fear of falling. He does not need assistance with sitting, standing or walking. Does not need assistance walking in his home. He does not need assistance in an unfamiliar setting. The patient is not using an assistive device. Fall Risk Screening: Patient is identified as a fall risk. Care Plan: Moderate Risk: Low risk interventions plus: do not leave patient on exam table unattended, supervised activity, educate patient/family on falls prevention, review safety initiatives with patient/family, family at bedside as allowed, yellow falls risk band, focus rounding attention, locate patient in area of high visibility, wheelchair, bed, or personal alarm, bedside commode, elevated toilet seat and pharmacy consult for medication concerns. Please identify location of pain: L shoulder and upper L LE. Pain Quality: [place]. Domestic Violence Screen: Does not feel threatened or abused physically, emotionally or sexually. Do you feel UNSAFE? The patient feels safe in the home. Depression/Suicide Screening: During the past 2 weeks, the patient felt down, depressed or hopeless. During the past 2 weeks, the patient has not felt little interest or pleasure in doing things. Insurance Insurance reviewed Visit number: 5 Approved number of visits: 8 Authorization not required after evaluation POC: 07/18 [facility] [facility] Supervising PT: Shira Ledezma PT, DPT, Kamran DN PT Dx: I69.354; S06.2X9D Onset Date: 2020 Subjective Patient reports:. Patient reports that he still has to phone and try to get into a PCP office. States that he has a peg board that was built for him that he was using since last visit. Thinks maybe his art specialist/release is a little better but has had increased spasticity in his arm. States that when he ascends stairs the L arm wants to draw up at his elbow. Patient identified by name and date of . Home program performing as directed: Yes. Precautions: seizures. Fall Risk: moderate Shunt; Plates in skull. Treatment Time in clinic started at 11:30 Time in clinic ended at 12:10 Total time in clinic is 40 minutes. Total timed code time is 39 minutes. Therapeutic exercise (62833): timed minutes 15, units 1 . NuSTep 5mins level 1 Therabar U's and N's 2 x 10 Dot taps on wall w/noodle Standing PEG board manipulation all 3 colors x 1 (N) T-band Walk outs x10 orange -flex, ER, IR (min-mod A for technique) No time today 02/09/22: Mod Plank shld weight shifts 3 x 10 Sammarinese ball AAROM 2 x 10 (Jamila at times) -flex, lateral S/L Scap retraction 2 x 10 Cane AAROM x15 ea (P to seated) -Flex, ER, abd . Manual Therapy (86222): timed minutes 24, (more content not included)... 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 By discharge VU MCNEILOR will achieve the following goals: Pt will demo and report compliance with HEP in order to augment POC goals and progression toward independence with symptom management for better outcomes once D/C from POC. , by week 2 Activity Limitation: Pt will be able to don/doff all clothes with , by week 4 Range Of Motion/Joint Mobility: Pt will demo improved *AROM/PROM* in L Shoulder to >/= 30 ER for improved ease with functional activities with reaching, lifting, carrying for progression toward independence with ADL?s AND IADL?s. , by week 4 Strength: Pt will demo improved MMT by >/= 1 point on 0-5 point scale in BUE's for improved strength and stability, and improved ease with lifting, carrying, and proper mechanics with ADL?s AND IADL?s. , by week 4 QuickDASH, Pt will report subjective improvement with score on QuickDASH improved by >/= 5 points for return to PLOF, improved QOL, and improved ease with ADL?s AND IADL?s. , by week 4 Planned interventions include: cryotherapy, education/instructio n, gait training, home program, hot pack, kinesiotaping, manual therapy, neuromuscular re-education, self care/home management, therapeutic activities, therapeutic exercises and IASTM/CUPPING . per pt request focus on LUE at this time; plan to incorporate LLE and balance/gait training as progresses. Frequency and duration: 2 time(s) a week, for 4 weeks, for 8 visits. Potential to achieve rehab goals is good Progress strength and ROM and coordination for motor control in UE. Progress with POC, as tolerated. Assessment Took BP at start of session and it 127/88 and HR 71 Patient declined being light headed during this visit with PRE's. Difficulty with art specialist strength during resisted walking PRE's. Added art specialist and coordination exercises this date with patient stating that he really liked doing them. Tactile cues needed with U's and N's. Adult Risk Screening There are spiritual/cultural practices/values/nee ds that are important to know: Tenriism Initial Fall Risk Screening: VU has fallen in the last 6 months. VU has a fear of falling. He does not need assistance with sitting, standing or walking. Does not need assistance walking in his home. He does not need assistance in an unfamiliar setting. The patient is not using an assistive device. Fall Risk Screening: Patient is identified as a fall risk. Care Plan: Moderate Risk: Low risk interventions plus: do not leave patient on exam table unattended, supervised activity, educate patient/family on falls prevention, review safety initiatives with patient/family, family at bedside as allowed, yellow falls risk band, focus rounding attention, locate patient in area of high visibility, wheelchair, bed, or personal alarm, bedside commode, elevated toilet seat and pharmacy consult for medication concerns. Please identify location of pain: L shoulder and upper L LE. Pain Quality: [place]. Domestic Violence Screen: Does not feel threatened or abused physically, emotionally or sexually. Do you feel UNSAFE? The patient feels safe in the home. Depression/Suicide Screening: During the past 2 weeks, the patient felt down, depressed or hopeless. During the past 2 weeks, the patient has not felt little interest or pleasure in doing things. Insurance Insurance reviewed Visit number: 5 Approved number of visits: 8 Authorization not required after evaluation POC: 07/18 [facility] [facility] Supervising PT: Shira Ledezma PT, DPT, Kamran DN PT Dx: I69.354; S06.2X9D Onset Date: 2020 Subjective Patient reports:. Patient reports that he was light headed this a.m. States this is the first time it has happened in a long time. Does not have a PCP to follow up on this but will actively search for MD. States that he has been able to open pill bottle some of the time now. Still has trouble with getting his shirt on by himself and needs his to help him. Patient reported 2/10 pain after treatment in shoulder. Patient identified by name and date of . Home program performing as directed: Yes. Precautions: seizures. Fall Risk: moderate Shunt; Plates in skull. Treatment Time in clinic started at 1:15 Time in clinic ended at 2:00 Total time in clinic is 43 minutes. Total timed code time is 38 minutes. Therapeutic exercise (08407): timed minutes 40, units 3 . NuSTep 5mins level 1 Therabar U's and N's 2 x 10 (N) Dot taps on wall w/noodle (N) Standing PEG board manipulation all 3 colors x 1 (N) T-band Walk outs x10 orange -flex, ER, IR (min-mod A for technique) Mod Plank shld weight shifts 3 x 10 Sammarinese ball AAROM 2 x 10 (Jamila at times) -flex, lateral S/L Scap re (more content not included)... Normal Touchworks GI Panelon 12-31-2018 Adenovirus F40/41 Not Detected Normal [facility] Comment on above: Order Comment: A neg ative FilmArray GI Panel result does not exclude the possibility of gastrointestinal infection. Performed By: #### 7 [id number] #### CHRISTOPHER Misc Micro SubSection , Astrovirus Not Detected Normal [facility] Comment on above: Order Comment: A neg ative FilmArray GI Panel result does not exclude the possibility of gastrointestinal infection. Performed By: #### 7 [id number] #### CHRISTOPHER Misc Micro SubSection , Campylobacter Not Detected Normal [facility] Comment on above: Order Comment: A neg ative FilmArray GI Panel result does not exclude the possibility of gastrointestinal infection. Performed By: #### 7 [id number] #### CHRISTOPHER Misc Micro SubSection , Cholesterol [Mass/Vol] Not Detected Normal [facility] Comment on above: Order Comment: A neg ative FilmArray GI Panel result does not exclude the possibility of gastrointestinal infection. Performed By: #### 7 [id number] #### CHRISTOPHER Misc Micro SubSection , Clostridium difficile toxin A/B Not Detected Normal [facility] Comment on above: Order Comment: A neg ative FilmArray GI Panel result does not exclude the possibility of gastrointestinal infection. Performed By: #### 7 [id number] #### CHRISTOPHER Misc Micro SubSection , Cryptosporidium Not Detected Normal [facility] Comment on above: Order Comment: A neg ative FilmArray GI Panel result does not exclude the possibility of gastrointestinal infection. Performed By: #### 7 [id number] #### CHRISTOPHER Misc Micro SubSection , Cyclospora cayetanensis Not Detected Normal [facility] Comment on above: Order Comment: A neg ative FilmArray GI Panel result does not exclude the possibility of gastrointestinal infection. Performed By: #### 7 [id number] #### CHRISTOPHER Misc Micro SubSection , E coli 0157 Not Detected Normal [facility] Comment on above: Order Comment: A neg ative FilmArray GI Panel result does not exclude the possibility of gastrointestinal infection. Performed By: #### 7 [id number] #### CHRISTOPHER Misc Micro SubSection , Entamoeba histolytica Not Detected Normal [facility] Comment on above: Order Comment: A neg ative FilmArray GI Panel result does not exclude the possibility of gastrointestinal infection. Performed By: #### 7 [id number] #### CHRISTOPHER Misc Micro SubSection , Enteroaggregatvie E coli (EAEC) Not Detected [facility] Comment on above: Order Comment: A neg ative FilmArray GI Panel result does not exclude the possibility of gastrointestinal infection. Performed By: #### 7 [id number] #### CHRISTOPHER Misc Micro SubSection , Enteropathogenic E Coli (EPEC) Not Detected Normal [facility] Comment on above: Order Comment: A neg ative FilmArray GI Panel result does not exclude the possibility of gastrointestinal infection. Performed By: #### 7 [id number] #### CHRISTOPHER Misc Micro SubSection , Enterotoxigenci E coli (ETEC)lt/st Not Detected Normal [facility] Comment on above: Order Comment: A neg ative FilmArray GI Panel result does not exclude the possibility of gastrointestinal infection. Performed By: #### 7 [id number] #### CHRISTOPHER Misc Micro SubSection , Giardia lamblia Not Detected Normal [facility] Comment on above: Order Comment: A neg ative FilmArray GI Panel result does not exclude the possibility of gastrointestinal infection. Performed By: #### 7 [id number] #### CHRISTOPHER Misc Micro SubSection , Norovirus GI/GII Not Detected Normal [facility] Comment on above: Order Comment: A neg ative FilmArray GI Panel result does not exclude the possibility of gastrointestinal infection. Performed By: #### 7 [id number] #### CHRISTOPHER Misc Micro SubSection , Plesiomonas shigelloides Not Detected Normal [facility] Comment on above: Order Comment: A neg ative FilmArray GI Panel result does not exclude the possibility of gastrointestinal infection. Performed By: #### 7 [id number] #### CHRISTOPHER Misc Micro SubSection , Rotavirus A Not Detected Normal [facility] Comment on above: Order Comment: A neg ative FilmArray GI Panel result does not exclude the possibility of gastrointestinal infection. Result Comment: The performance of the FilmArray GI Panel has not been established in individuals who received Rotavirus A vaccine. Recent oral administration of a Rotavirus A vaccine may cause positive results for Rotavirus A if the virus is passed in the stool. Note: A negative FilmArray GI Panel does not exclude the possibility of gastrointestinal infection. Performed By: #### 7 [id number] #### CHRISTOPHER Misc Micro SubSection , Salmonella Not Detected Normal [facility] Comment on above: Order Comment: A neg ative FilmArray GI Panel result does not exclude the possibility of gastrointestinal infection. Performed By: #### 7 [id number] #### CHRISTOPHER Misc Micro SubSection , Sapovirus Not Detected Normal [facility] Comment on above: Order Comment: A neg ative FilmArray GI Panel result does not exclude the possibility of gastrointestinal infection. Performed By: #### 7 [id number] #### CHRISTOPHER Misc Micro SubSection , Shiga-like toxin-producing E coli (STEC) Not Detected Normal [facility] Comment on above: Order Comment: A neg ative FilmArray GI Panel result does not exclude the possibility of gastrointestinal infection. Performed By: #### 7 [id number] #### CHRISTOPHER Misc Micro SubSection , Shigella/Enteroinvasive E coli (EIEC) Not Detected Normal [facility] Comment on above: Order Comment: A neg ative FilmArray GI Panel result does not exclude the possibility of gastrointestinal infection. Performed By: #### 7 [id number] #### CHRISTOPHER [facility] Micro SubSection , Vibrio Not Detected Normal [facility] Comment on above: Order Comment: A neg ative FilmArray GI Panel result does not exclude the possibility of gastrointestinal infection. Performed By: #### 7 [id number] #### CHRISTOPHER Mis Micro SubSection , Yersinia enterocolitica Not Detected Normal [facility] Comment on above: Order Comment: A neg ative FilmArray GI Panel result does not exclude the possibility of gastrointestinal infection. Performed By: #### 7 [id number] #### CHRISTOPHER [facility] Micro SubSection , Auto Diffon 12-18-2018 Basophils (Bld) [#/Vol] 0.1 E3/mcL Normal 0.0-0.2 [facility] Comment on above: Order Comment: Order Added by Discern Expert. Performed By: #### 2 [id number] #### CHRISTOPHER [employer] [address] [place] [address] Basophils/100 WBC (Bld) 0.9 % Normal 0.0-2.0 [facility] Comment on above: Order Comment: Order Added by Discern Expert. Performed By: #### 2 [id number] #### CHRISTOPHER [employer] [address] [place] [address] Eos Absolute 0.4 E3/mcL Normal 0.0-0.7 [facility] Comment on above: Order Comment: Order Added by Discern Expert. Performed By: #### 2 [id number] #### CHRISTOPHER [employer] [address] [place] [address] Eosinophils/100 WBC (Bld) 3.7 % Normal 0.0-11.0 [facility] Comment on above: Order Comment: Order Added by Discern Expert. Performed By: #### 2 [id number] #### CHRISTOPHER [employer] [address] [place] [address] Lymphocytes (Bld) [#/Vol] 2.6 E3/mcL Normal 1.2-3.4 [facility] Comment on above: Order Comment: Order Added by Discern Expert. Performed By: #### 2 [id number] #### CHRISTOPHER [employer] [address] [place] [address] Lymphocytes/100 WBC (Bld) 26.6 % Normal 20.0-55.0 [facility] Comment on above: Order Comment: Order Added by Discern Expert. Performed By: #### 2 [id number] #### CHRISTOPHER [facility] [address] [place] [address] [place] Absolute 0.6 E3/mcL Normal 0.0-0.7 [facility] Comment on above: Order Comment: Order Added by Discern Expert. Performed By: #### 2 [id number] #### CHRISTOPHER [address] [address] [place] [address] Monocytes/100 WBC (Bld) 6.6 % Normal 0.0-10.0 [facility] Comment on above: Order Comment: Order Added by Discern Expert. Performed By: #### 2 [id number] #### CHRISTOPHER [address] [address] [place] [address] Neutro Absolute 6.0 E3/mcL Normal 1.4-6.5 [facility] Comment on above: Order Comment: Order Added by Discern Expert. Performed By: #### 2 [id number] #### CHRISTOPHER [employer] [address] [place] [address] Neutro Auto 62.2 % Normal 37.0-75.0 [facility] Comment on above: Order Comment: Order Added by Discern Expert. Performed By: #### 2 [id number] #### CHRISTOPHER [address] [place] [address] BMPon 12-18-2018 Anion gap [Moles/Vol] 10 mmol/L Normal 10-20 [facility] Comment on above: Performed By: #### 2 [id number] #### CHRISTOPHER [employer] [address] [place] [address] Calcium [Mass/Vol] 9.5 mg/dL Normal 8.6-10.3 [facility] Comment on above: Performed By: #### 2 [id number] #### CHRISTOPHER [employer] [address] [place] [address] Chloride [Moles/Vol] 107 mmol/L Normal 98-107 [facility] Comment on above: Performed By: #### 2 [id number] #### CHRISTOPHER [employer] [address] [place] [address] CO2 [Moles/Vol] 26.0 mmol/L Normal 21.0-32.0 [facility] Comment on above: Performed By: #### 2 [id number] #### CHRISTOPHER [employer] [address] [place] [address] Creatinine [Mass/Vol] 1.2 mg/dL Normal 0.5-1.3 [facility] Comment on above: Performed By: #### 2 [id number] #### CHRISTOPHER [employer] [address] [place] [address] Glucose [Mass/Vol] 76 mg/dL Normal 70-99 [facility] Comment on above: Performed By: #### 2 [id number] #### CHRISTOPHER [employer] [address] [place] [address] Potassium [Moles/Vol] 4.3 mmol/L Normal 3.5-5.3 [facility] Comment on above: Performed By: #### 2 [id number] #### CHRISTOPHER [employer] [address] [place] [address] Sodium [Moles/Vol] 138 mmol/L Normal 136-145 [facility] Comment on above: Performed By: #### 2 [id number] #### CHRISTOPHER [employer] [address] [place] [address] Urea nitrogen [Mass/Vol] 19 mg/dL Normal 6-23 [facility] Comment on above: Performed By: #### 2 [id number] #### CHRISTOPHER [employer] [address] [place] [address] Urea nitrogen/Creatinine [Mass ratio] 15.8 ratio Normal 5.4-30.0 [facility] Comment on above: Performed By: #### 2 [id number] #### CHRISTOPHER [employer] [address] [place] [address] CBC w/ Auto Diffon 9 Erythrocyte distribution width (RBC) [Ratio] 12.8 % Normal 11.5-14.5 [facility] Comment on above: Performed By: #### 2 [id number] #### CHRISTOPHER [employer] [address] [place] [address] Hematocrit (Bld) [Volume fraction] 43.5 % Normal 42.0-52.0 [facility] Comment on above: Performed By: #### 2 [id number] #### CHRISTOPHER [employer] [address] [place] [address] Hemoglobin (Bld) [Mass/Vol] 15.1 g/dL Normal 13.5-18.0 [facility] Comment on above: Performed By: #### 2 [id number] #### CHRISTOPHER [employer] [address] [place] [address] MCH (RBC) [Entitic mass] 32.5 pg High 27.0-31.0 [facility] Comment on above: Performed By: #### 2 [id number] #### CHRISTOPHER [employer] [address] [place] [address] MCHC (RBC) [Mass/Vol] 34.7 g/dL Normal 33.0-37.0 [facility] Comment on above: Performed By: #### 2 [id number] #### CHRISTOPHER [employer] [address] [place] [address] MCV (RBC) [Entitic vol] 93.9 fL Normal 78.0-100.0 [facility] Comment on above: Performed By: #### 2 [id number] #### CHRISTOPHER [employer] [address] [place] [address] Platelet mean volume (Bld) [Entitic vol] 8.1 fL Normal 7.4-11.0 [facility] Comment on above: Performed By: #### 2 [id number] #### CHRISTOPHER [employer] [address] [place] [address] Platelets (Bld) [#/Vol] 274 E3/mcL Normal 130-400 [facility] Comment on above: Performed By: #### 2 [id number] #### CHRISTOPHER [employer] [address] [place] [address] RBC (Bld) [#/Vol] 4.64 E6/mcL Normal 3.90-6.10 [facility] Comment on above: Performed By: #### 2 [id number] #### CHRISTOPHER [employer] [address] [place] [address] WBC (Bld) [#/Vol] 9.7 E3/mcL Normal 3.6-11.0 [facility] Comment on above: Performed By: #### 2 [id number] #### CHRISTOPHER [employer] [address] [place] [address] Hep Func Panelon 12-18-2018 Albumin [Mass/Vol] 4.3 g/dL Normal 3.4-5.0 [facility] Comment on above: Performed By: #### 2 [id number] #### CHRISTOPHER [facility] [address] [place] [address] Albumin/Globulin [Mass ratio] 1.5 {ratio} Normal 1.1-1.9 [facility] Comment on above: Performed By: #### 2 [id number] #### CHRISTOPHER [employer] [address] [place] [address] Alk Phos 68 Int._Unit/L Normal 33-120 [facility] Comment on above: Performed By: #### 2 [id number] #### CHRISTOPHER [employer] [address] [place] [address] ALT [Catalytic activity/Vol] 16 Int._Unit/L Normal 10-52 [facility] Comment on above: Performed By: #### 2 [id number] #### CHRISTOPHER [employer] [address] [place] [address] AST [Catalytic activity/Vol] 19 Int._Unit/L Normal 9-39 [facility] Comment on above: Performed By: #### 2 [id number] #### CHRISTOPHER [employer] [address] [place] [address] Bili Direct 0.02 mg/dL Normal 0.00-0.30 [facility] Comment on above: Performed By: #### 2 [id number] #### CHRISTOPHER [employer] [address] [place] [address] Bili Indirect 0.44 mg/dL Normal [facility] Comment on above: Result Comment: No e stablished ranges available for the indirect bilirubin Performed By: #### 2 [id number] #### CHRISTOPHER [employer] [address] [place] [address] Bili Total 0.46 mg/dL Normal 0.00-1.20 [facility] Comment on above: Performed By: #### 2 [id number] #### CHRISTOPHER [employer] [address] [place] [id number] Globulin (S) [Mass/Vol] 3.0 g/dL Normal 2.0-4.0 [facility] Comment on above: Performed By: #### 2 [id number] #### CHRISTOPHER [place] [id number] [place] [address] Protein [Mass/Vol] 7.2 g/dL Normal 6.4-8.2 [facility] Comment on above: Performed By: #### 2 [id number] #### CHRISTOPHER [address] [address] PTon 12-18-2018 INR Coag (PPP) [Relative time] 1.0 {INR} Normal 0.9-1.1 [facility] Comment on above: Result Comment: INR Recommended Therapeutic ranges: Prophylaxis/treatment of DVT and PE..........2.0-3.0 Prevention of systemic embolism.................2.0-3.0 Mechanical prosthetic values........................2.5-3.5 CRITICAL VALUE.........................................> 4.0 NOTE: New methodology started 05/26/2018 Performed By: #### 2 [id number] #### [facility] [place] [address] PT Coag (PPP) [Time] 11.4 second(s) Normal 9.7-12.7 [facility] Comment on above: Result Comment: NOTE : New reference range established on 05/26/2018 due to change in methodology. Performed By: #### 2 [id number] #### CHRISTOPHER [facility] [place] [address] PTTon 12-18-2018 aPTT Coag (Bld) [Time] 35 second(s) Normal 28-38 [facility] Comment on above: Result Comment: NOTE :New reference range established 05/26/2018 due to change in methodology. Performed By: #### 2 [id number] #### CHRISTOPHER [employer] [address] [place] [address] UA Completeon 12-18-2018 Color (U) Yellow Normal Yellow [facility] Comment on above: Performed By: #### 8 [id number] #### CHRISTOPHER Urinalysis Automated Subsection [facility] [place] [address] Glucose (U) [Mass/Vol] Negative Normal Negative [facility] Comment on above: Performed By: #### 8 [id number] #### CHRISTOPHER Urinalysis Automated Subsection [facility] [place] [address] Ketones Ql (U) Negative Normal Negative [facility] Comment on above: Performed By: #### 8 [id number] #### CHRISTOPHER Urinalysis Automated Subsection [address] [place] [address] RBC (U) [#/Vol] 0-3 Normal 0-3 [facility] Comment on above: Performed By: #### 8 [id number] #### CHRISTOPHER Urinalysis Automated Subsection [address] [place] [address] UA Blood Negative Normal Negative [facility] Comment on above: Performed By: #### 8 [id number] #### CHRISTOPHER Urinalysis Automated Subsection [facility] [place] [address] UA Ascorbic Acid 40 mg/dL High <=19 [facility] Comment on above: Performed By: #### 8 [id number] #### CHRISTOPHER Urinalysis Automated Subsection [address] [place] [address] UA Clarity Clear Normal Clear [facility] Comment on above: Performed By: #### 8 [id number] #### CHRISTOPHER Urinalysis Automated Subsection [address] [place], [place] [id number] UA Leuk Est Negative Normal Negative [facility] Comment on above: Performed By: #### 8 [id number] #### CHRISTOPHER Urinalysis Automated Subsection [address] [place] [address] UA Mucous Trace Abnormal Trace [facility] Comment on above: Performed By: #### 8 [id number] #### CHRISTOPHER Urinalysis Automated Subsection [address] [place], [place] [id number] UA Nitrite Negative Normal Negative [facility] Comment on above: Performed By: #### 8 [id number] #### CHRISTOPHER Urinalysis Automated Subsection [facility] [place] [address] UA pH 5.0 Normal 4.6-8.0 [facility] Comment on above: Performed By: #### 8 [id number] #### CHRISTOPHER Urinalysis Automated Subsection [address] [place] [address] UA Protein Negative Normal Negative [facility] Comment on above: Performed By: #### 8 [id number] #### CHRISTOPHER Urinalysis Automated Subsection [address] [place] [address] UA Spec Grav 1.028 Normal 1.003-1.030 [facility] Comment on above: Performed By: #### 8 [id number] #### CHRISTOPHER Urinalysis Automated Subsection [address] [place] [address] UA Urobilinogen Negative Normal [facility] Comment on above: Result Comment: Due to a manufacturing issue, low positive urobilinogen results may be fasely positive. Correlate with urine bilirubin and additional clinical/laboratory findings to assess the risk of hemolytic anemia or liver disease. If clinically indicated, repeat testing with an alternate method is available by contacting the laboratory within 24 hours. Performed By: #### 8 [id number] #### CHRISTOPHER Urinalysis Automated Subsection [address] [place] [address] UA WBC 0-5 Normal 0-5 [facility] Comment on above: Performed By: #### 8 [id number] #### CHRISTOPHER Urinalysis Automated Subsection [address] [place] [address] Urobilinogen Qn (U) Negative Normal Negative [facility] Comment on above: Performed By: #### 8 [id number] #### CHRISTOPHER Urinalysis Automated Subsection [address] [place], [place] [id number] eGFRon 12-18-2018 GFR/1.73 sq M predicted among non-blacks MDRD (S/P/Bld) [Vol rate/Area] mL/min/{1.73_m2} Normal [facility] Comment on above: Order Comment: Order added by Discern Expert. Performed By: #### 1 [id number] #### CHRISTOPHER [employer] [address] [place] [address] Vital Signs Date Time Vital Sign Value Performing Clinician Facility 10-15-2024 08:40-0400 Body height 162.6 cm Reva Johnston [employer] Work Phone: [facility] 10-15-2024 08:40-0400 Body mass index (BMI) [Ratio] 29.01 kg/m2 Reva Cardozoman [employer]ING [employer] Work Phone: [facility] 10-15-2024 08:40-0400 Body weight 76.66 kg Reva Johnston [employer]ING [employer] Work Phone: [facility] 10-15-2024 08:40-0400 Diastolic blood pressure 81 mm[Hg] Reva Cardozoman [employer]ING [employer] Work Phone: [facility] 10-15-2024 08:40-0400 Heart rate 88 /min Reva Johnston [employer]ING [employer] Work Phone: [facility] 10-15-2024 08:40-0400 SaO2% (BldA) [Mass fraction] 98 % Reva Johnston [employer]ING [employer] Work Phone: [facility] 10-15-2024 08:40-0400 Systolic blood pressure 114 mm[Hg] Reva Johnston [employer]ING [employer] Work Phone: [facility] 09-23-2024 12:42-0400 Body height 160 cm Sergei Rivera MD Work Phone: [facility] 09-23-2024 12:42-0400 Body mass index (BMI) [Ratio] 29.95 kg/m2 Sergei Rivera MD Work Phone: [facility] 09-23-2024 12:42-0400 Body weight 76.7 kg Sergei Rivera MD Work Phone: [facility] 09-23-2024 12:42-0400 Diastolic blood pressure 73 mm[Hg] Sergei Rivera MD Work Phone: [facility] 09-23-2024 12:42-0400 Heart rate 68 /min Sergei Rivera MD Work Phone: [facility] 09-23-2024 12:42-0400 SaO2% (BldA) [Mass fraction] 97 % Sergei Rivera MD Work Phone: [facility] 09-23-2024 12:42-0400 Systolic blood pressure 108 mm[Hg] Sergei Rivera MD Work Phone: [facility] 06-24-2024 12:47-0500 Body height 162.6 cm Sergei Rivera MD Work Phone: [facility] 06-24-2024 12:47-0500 Body mass index (BMI) [Ratio] 28.84 kg/m2 Sergei Rivera MD Work Phone: [facility] 06-24-2024 12:47-0500 Body weight 76.2 kg Sergei Rivera MD Work Phone: [facility] 06-24-2024 12:47-0500 Diastolic blood pressure 64 mm[Hg] Sergei Rivera MD Work Phone: [facility] 06-24-2024 12:47-0500 Heart rate 59 /min Sergei Rivera MD Work Phone: [facility] 06-24-2024 12:47-0500 SaO2% (BldA) [Mass fraction] 99 % Sergei Rivera MD Work Phone: [facility] 06-24-2024 12:47-0500 Systolic blood pressure 100 mm[Hg] Sergei Rivera MD Work Phone: [facility] 04-30-2024 12:33-0500 Body height 162.6 cm Jose Randolph DO Work Phone: [facility] 04-30-2024 12:33-0500 Body mass index (BMI) [Ratio] 27.98 kg/m2 Jose Randolph DO Work Phone: [facility] 04-30-2024 12:33-0500 Body weight 73.94 kg Jose Oberhauser DO Work Phone: [facility] 04-30-2024 12:33-0500 Diastolic blood pressure 78 mm[Hg] Jose Oberhauser DO Work Phone: [facility] 04-30-2024 12:33-0500 Heart rate 68 /min Jose Oberhauser DO Work Phone: [facility] 04-30-2024 12:33-0500 Systolic blood pressure 115 mm[Hg] Jose Oberhauser DO Work Phone: [facility] 03-25-2024 12:47-0500 Body height 162.6 cm Sergei Rivera MD Work Phone: [facility] 03-25-2024 12:47-0500 Body mass index (BMI) [Ratio] 27.66 kg/m2 Sergei Rivera MD Work Phone: [facility] 03-25-2024 12:47-0500 Body weight 73.1 kg Sergei Rivera MD Work Phone: [facility] 03-25-2024 12:47-0500 Diastolic blood pressure 69 mm[Hg] Sergei Rivera MD Work Phone: [facility] 03-25-2024 12:47-0500 SaO2% (BldA) [Mass fraction] 98 % Sergei Rivera MD Work Phone: [facility] 03-25-2024 12:47-0500 Systolic blood pressure 104 mm[Hg] Sergei Rivera MD Work Phone: [facility] 03-18-2024 09:12-0500 Body height 162.6 cm Reva Johnston APRN-PROCESSING LEAD Work Phone: [facility] 03-18-2024 09:12-0500 Body mass index (BMI) [Ratio] 27.67 kg/m2 Reva Johnston APRN-PROCESSING LEAD Work Phone: [facility] 03-18-2024 09:12-0500 Body weight 73.12 kg Reva Johnston [employer] Work Phone: [facility] 03-18-2024 09:12-0500 Diastolic blood pressure 92 mm[Hg] Reva Johnston [employer]ING [employer] Work Phone: [facility] 03-18-2024 09:12-0500 Heart rate 59 /min Reva Johnston [employer]ING [employer]AD Work Phone: [facility] 03-18-2024 09:12-0500 Systolic blood pressure 134 mm[Hg] Reva Johnston [employer]ING [employer]AD Work Phone: [facility] 03-09-2024 10:19040 Body height 162.6 cm Jose Oberhauser DO Work Phone: [facility] 03-09-2024 10:190400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 [address] PCP - [facility] PCP 05/13/22 Applications Sales Representative Relationship Specialty Start Date End Date Jose Randolph DO [address] [facility] [place] [address] PCP - General 03/05/22 Jose Randloph DO [address] [facility] [place] [address] PCP - [facility]CO PCP 05/13/22 Jose Randolph DO [address] [facility] [place] [address] PCP - [facility] Medicaid PCP 11/10/22 Applications Sales Representative Relationship Specialty Start Date End Date Yaquelin Coburn [address] [place] [address] [place] [address] Referring Occupational Medicine 08/18/21 Applications Sales Representative Relationship Specialty Start Date End Date Yaquelin Coburn MD [address] [place] [address] Referring Occupational Medicine 08/18/21 Applications Sales Representative Relationship Specialty Start Date End Date Yaquelin Coburn MD [address] [place] [address] Referring Occupational Medicine 08/18/21 Applications Sales Representative Relationship Specialty Start Date End Date Jose Randolph, [address] [facility] [place] [address] PCP - General 03/05/22 Jose Randolph DO [address] [facility] [place] [address] PCP - [employer] [facility] PCP 05/13/22 Jose Randolph DO [address] [facility] [place] [address] PCP - [facility] Medicaid PCP 11/10/22 Applications Sales Representative Relationship Specialty Start Date End Date Yaquelin Coburn MD [address] [place] [address] Referring Occupational Medicine 08/18/21 Applications Sales Representative Relationship Specialty Start Date End Date Yaquelin Coburn MD [address] [place] [address] Referring Occupational Medicine 08/18/21 Applications Sales Representative Relationship Specialty Start Date End Date Yaquelin Coburn MD [address] [place] [address] Referring Occupational Medicine 08/18/21 Applications Sales Representative Relationship Specialty Start Date End Date Yaquelin Coburn MD [address] [place] [address] Referring Occupational Medicine 08/18/21 Applications Sales Representative Relationship Specialty Start Date End Date Yaquelin Coburn MD [address] [place] [address] Referring Occupational Medicine 08/18/21 Applications Sales Representative Relationship Specialty Start Date End Date Jose Randolph DO [address] [facility] [place] [address] PCP - General 03/05/22 Jose Randolph, DO [address] [facility] [place] [address] PCP - [facility] PCP 05/13/22 Jose Randolph, DO [address] [facility] [place] [address] PCP - [facility] Medicaid PCP 11/10/22 Applications Sales Representative Relationship Specialty Start Date End Date Jose Randolph DO [address] [facility] [place] [address] PCP - General 03/05/22 Jose Randolph, DO [address] [facility] [place] [address] PCP - [employer] [facility] PCP 05/13/22 Jose Randolph, DO [address] [facility] [place] [address] PCP - [facility] Medicaid PCP 11/10/22 Applications Sales Representative Relationship Specialty Start Date End Date Yaquelin Coburn MD [facility] [place] [address] Referring Occupational Medicine 08/18/21 Applications Sales Representative Relationship Specialty Start Date End Date Jose Randolph, DO [address] [facility] [place] [address] PCP - General 03/05/22 Jose Randolph DO [address] [facility] [place] [address] PCP - [facility] [facility] PCP 05/13/22 Jose Randolph, [address] [facility] [place] [address] PCP - [facility] Medicaid PCP 11/10/22 Applications Sales Representative Relationship Specialty Start Date End Date Jose Randolph DO [address] [facility] [place] [address] PCP - General 03/05/22 Jose Randolph DO [address] [place] [address] PCP - [facility] [facility] PCP 05/13/22 Jose Randolph, [address] [place] [address] PCP - [facility] Medicaid PCP 11/10/22 Applications Sales Representative Relationship Specialty Start Date End Date Jose Randolph DO [address] [facility] [place] [address] PCP - General 03/05/22 Applications Sales Representative Relationship Specialty Start Date End Date Jose Randolph DO [address] [facility] [place] [address] PCP - General 03/05/22 Jose Randolph, [address] [facility] [place] [address] PCP - [employer] [facility] PCP 05/13/22 Jose Randolph, [address] [facility] [place] [address] PCP - [facility] Medicaid PCP 11/10/22 Applications Sales Representative Relationship Specialty Start Date End Date Jose Randolph DO [address] [facility] [place] [address] PCP - General 03/05/22 Jose Randolph, [address] [facility] [place] [address] PCP - [employer] [facility] PCP 05/13/22 Jose Randolph, DO [address] [facility] [place] [address] PCP - [facility] Medicaid PCP 11/10/22 Applications Sales Representative Relationship Specialty Start Date End Date Jose Randolph, [address] [facility] [place] [address] PCP - General 03/05/22 Jose Randolph, DO [address] [facility] [place] [address] PCP - [employer] [facility] PCP 05/13/22 Jose Randolph, DO [address] [facility] [place] [address] PCP - [facility] Medicaid PCP 11/10/22 Applications Sales Representative Relationship Specialty Start Date End Date Yaquelin Coburn MD [address] [place] [address] Referring Occupational Medicine 08/18/21 Applications Sales Representative Relationship Specialty Start Date End Date Jose Randolph, DO PCP - General 03/05/22 Jose Randolph, DO [address] [facility] [place] [address] [facility] - [facility] PCP 05/13/22 Jose Randolph, DO [address] [facility] [place] [address] PCP - [facility] Medicaid PCP 11/10/22 Jose Randolph, DO [address] [facility] [place] [address] PCP - [facility] ACO Attributed Provider 02/11/24 Applications Sales Representative Relationship Specialty Start Date End Date Yaquelin Coburn MD [address] [place] [address] Referring Occupational Medicine 08/18/21 Applications Sales Representative Relationship Specialty Start Date End Date Jose Randolph, DO [address] [facility] [place] [address] PCP - [employer] [facility] PCP 05/13/22 Jose Randolph, DO [address] [facility] [place] [address] PCP - [facility] ACO Attributed Provider 02/11/24 Reva Johnston APRN-SIMON [address] [facility], [address] [place] [id number] PCP - General Family Medicine 08/05/24 Kavon Mena DO [address] [facility], [address] [place] [address] PCP - [facility] Medicaid PCP 08/11/24 FOR RECORDS PERTAINING TO PATIENTS WHO ARE OR HAVE BEEN ENROLLED IN A CHEMICAL DEPENDENCY/SUBSTANCEABUSE PROGRAM, SOME INFORMATION MAY BE OMITTED. This clinical summary was aggregated from multiple sources. Caution should be exercised in using it in the provision of clinical care. This summary normalizes information from multiple sources, and as a consequence, information in this document may materially change the coding, format and clinical context of patient data. In addition, data may be omitted in some cases. CLINICAL DECISIONS SHOULD BE BASED ON THE PRIMARY CLINICAL RECORDS. [employer] provides no warranty or guarantee of the accuracy or completeness of information in this document.
[2024-11-07 12:03] LABS: Absolute Lymphocyte Count 1.59 X10^3/uL (0.83-4.51); Absolute Neutrophil Count 3.7 X10^3/uL (2.0-7.7); Basophil# 0.05 X10^3/uL; Basophil% 0.8 % (0-1); Eosinophil# 0.32 X10^3/uL; Eosinophils% 5.2 % (0-5); Hematocrit 45.8 % (40-54); Hemoglobin 16.3 g/dL (13.0-16.5); Lymphocyte # 1.59 X10^3/ul (0.83-4.51); Lymphocyte % 25.6 % (19-41); Mean Corp Hgb Conc 35.6 g/dL (32-36); Mean Corpuscular Hgb 32.5 pg (27.0-32.0); Mean Corpuscular Volume 91.4 fL (80-94); Mean Platelet Vol. 9.6 fl (6.2-12.0); Monocyte# 0.51 X10^3/uL; Monocyte% 8.2 % (0-10); NRBC Flagged by Analyzer 0 % (0-5); Neutrophil # 3.71 X10^3/uL (2.7-7.7); Neutrophil % 59.9 % (47-70); Platelet Count 256 K/mm3 (150-450); RBC Distribution Width CV 11.9 % (11.6-14.6); RBC Distribution Width SD 40.1 fl (35.1-43.9); Red Blood Count 5.01 M/mm3 (4.6-6.2); White Blood Count 6.2 K/mm3 (4.4-11.0)
[2024-11-07 12:26] LABS: Anion Gap 12 (5-15); BUN 12 mg/dL (4-19); BUN/Creat Ratio 11.1 RATIO (10-20); Calcium,Total 9.4 mg/dL (7.6-11.0); Carbon Dioxide 23.1 mmol/L (21.0-32.0); Chloride 101 mmol/L (98-108); Creatinine, Serum 1.04 mg/dL (0.70-1.20); EST Glomerular Filtration Rate 89 (>60); Glucose 87 mg/dL (70-99); Potassium 4.1 mmol/L (3.3-5.1); Sodium Level 137 mmol/L (133-145); Troponin T High Sensitivity 7 ng/L (<=22)
[2024-11-07 15:08] LABS: Troponin T High Sens 2 HR < 6 ng/L (<=22)
[2024-11-07 15:36] VITALS: BP 108/81; PULSE 68; RESP 12; TEMP 36.2; O2SAT 99
== END 2024-11-07 15:48 | disposition home or self-care (01) ==
PROVIDERS: Emergency Provider Emergency Medicine; Visit Provider Emergency Medicine
DX: I10 Essential (primary) hypertension (principal); I69.354 Hemiplegia and hemiparesis following cerebral infarction affecting left non-dominant side; Z79.899 Other long term (current) drug therapy
CPT/HCPCS: 80048; 84484; 85025; 93005; 99283; A4216